=== PATIENT | female | born 1950 | race Caucasian/White ===

== ENCOUNTER → 2020-01-21 14:20 | Outpatient (BNVA) | payer OTHER, MEDICARE, BC, SELFPAY | PROVIDERS: Visit Provider Nurse Practitioner Family | DX: S49.81XA Other specified injuries of right shoulder and upper arm, initial encounter (principal); Y99.0 Civilian activity done for income or pay | CPT/HCPCS: 73030 ==

== ENCOUNTER 2020-01-29 08:04 | Outpatient (CLI) | payer MEDICARE, BC, SELFPAY ==
--- NOTE | 2020-01-29 08:00 | CT_ITS ---
WS: [id number] CT CHEST WITH INTRAVENOUS CONTRAST HISTORY: lung mass TECHNIQUE: Contiguous 5 mm axial imaging performed on the thorax. Coronal and sagittal reformats are submitted. All CT scans at [facility] use at least one of these dose optimization techniq ues: automated exposure control; mA and/or kV adjustment per patient size (includes targeted exams wh ere dose is matched to clinical indication); or iterative reconstruction. CONTRAST: Omnipaque 300; 95 mL IV. DLP: 985.04 mGycm COMPARISON: RIGHT shoulder radiograph 01/21/2020. Lungs and central airway: Numerous bilateral pulmonary masses. The largest mass is cavitary and corre sponds to the finding on the recent radiograph. Largest cavitary mass with thick wall measures 5.4 x 3.1 x 4.5 cm. There is additional atelectasis extending towards the mediastinum. Additional subcentim eter scattered pulmonary nodules. There is a larger nodule RIGHT upper lobe measuring 2.5 x 2.0 x 2.1 cm with slightly spiculated margins. Pleural-based mass in the LEFT lower lobe measures 2.8 x 2.0 x 3.0 cm. Some of these masses contain calcifications. Pleura: Normal. No pleural effusion. Heart and pericardium: Normal size heart. No pericardial effusion. Mediastinum and haleigh: Bilateral mediastinal indeterminate lymph nodes. The largest lymph node on the RIGHT is 9 mm in short axis diameter. Vessels: Mild atherosclerosis aorta with no aneurysm. Pulmonary artery size is very slightly enlarged . Chest wall and lower neck: No soft tissue masses. Upper abdomen: Mild hepatic enlargement. Liver extends over length of 17.8 cm in length with mild hep atic steatosis. No metastatic lesions are identified. Portal vein is normal. No bile duct dilatation. Prior cholecystectomy. No adrenal mass. Osseous structures: Mild osteopenia. No osteoblastic or osteolytic bone disease. CT/CT chest w con* [id number] IMPRESSION: 1. Numerous bilateral, multilobar pulmonary nodules and masses. Largest mass i s cavitary in the RIGHT middle lobe measuring 5.4 x 3.1 x 4.5 cm. Differential includes primary lung cancer with metastatic disease and metastatic disease of unknown primary, infection/fungal etiology. 2. Mild indeterminate hilar adenopathy. 3. Mild pulmonary hypertension. 4. Prior cholecystectomy. 5. Normal adrenal glands.
[2020-01-29 08:49] LABS: Blood Urea Nitrogen 9 mg/dL (8-23); Glomerular Filtration Rate 70.9 mL/min (90-130)
[2020-01-29] MEDS: iohexol 300 mg/mL 100 mL Btl IV (09:04)
== END 2020-01-29 08:05 | disposition home or self-care (01) ==
LOC: RADWPI 08:12
PROVIDERS: PCP Family Medicine; Visit Provider Family Medicine
DX: R91.8 Other nonspecific abnormal finding of lung field (principal); R59.9 Enlarged lymph nodes, unspecified; I27.20 Pulmonary hypertension, unspecified
CPT/HCPCS: 71260; 82565; 84520; Q9967

== ENCOUNTER → 2020-02-06 14:00 | Outpatient (BNVA) | payer MEDICARE, BC, SELFPAY | PROVIDERS: PCP Family Medicine; Referring Provider Family Medicine; Visit Provider Thoracic Surgery (Cardiothoracic Vascular Surgery) | DX: J98.4 Other disorders of lung (principal); R91.1 Solitary pulmonary nodule; R91.8 Other nonspecific abnormal finding of lung field; Z87.891 Personal history of nicotine dependence | CPT/HCPCS: 36415; 80053; 82728; 83516; 85025; 85651; 86003; 86140; 86431; 86698; 87305; 87385; 87449 ==

== ENCOUNTER 2020-02-11 09:59 | Outpatient (CLI) | payer MEDICARE, BC, SELFPAY ==
[2020-02-11 10:32] LABS: Immunoglobulin IGA 98 mg/dL (70-400); Immunoglobulin IGG 1177 mg/dL (700-1600); Immunoglobulin IGM 44 mg/dL (40-230)
[2020-02-12 05:11] LABS: PROTEIN, TOTAL 6.4 g/dL (6.1-8.1)
[2020-02-12 12:01] LABS: ALBUMIN 3.7 g/dL (3.8-4.8); ALPHA 1 GLOBULIN 0.3 g/dL (0.2-0.3); ALPHA 2 GLOBULIN 0.7 g/dL (0.5-0.9); BETA 1 GLOBULIN 0.4 g/dL (0.4-0.6); BETA 2 GLOBULIN 0.3 g/dL (0.2-0.5)
[2020-02-12 12:57] LABS: Creatinine, Random Urine 77 mg/dL (20-275); Protein, Total, Random 15 mg/dL (5-24); Protein/Creatinine Ratio 0.195 (0.021-0.161); Protein/Creatinine Ratio 195 mg/g creat (21-161)
[2020-02-13 15:40] LABS: KAPPA LIGHT CHAIN, FREE, SERUM 29.8 mg/L (3.3-19.4); KAPPA/LAMBDA LIGHT CHAINS FREE 1.69 (0.26-1.65); LAMBDA LIGHT CHAIN, FREE, SERU 17.6 mg/L (5.7-26.3)
[2020-02-14 08:46] LABS: Albumin,Urine Random 0 %; Alpha-1-Globulins Urine Random 0 %; Alpha-2-Globulins Urine Random 0 %; Beta-Globulin,Urine Random 0 %; Gamma Globulin,Urine Random 0 %
== END 2020-02-11 10:00 | disposition home or self-care (01) ==
LOC: LAB 10:00
PROVIDERS: PCP Family Medicine; Visit Provider Internal Medicine Critical Care Medicine
DX: E88.09 Other disorders of plasma-protein metabolism, not elsewhere classified (principal); R91.1 Solitary pulmonary nodule
CPT/HCPCS: 36415; 82784; 83516; 83883; 84155; 84165; 87305

== ENCOUNTER 2020-02-21 07:48 | Day surgery (SDC) | payer MEDICARE, BC, SELFPAY ==
[2020-02-20 17:22] VITALS: BMI 23.6
[2020-02-21] VITALS (8 sets, daily range): BP systolic 115–133; BP diastolic 62–83; PULSE 61–88; RESP 18–20; TEMP 36.2–36.8; O2SAT 92–99
[2020-02-21] MEDS: sodium chloride 0.9% 1,000 ML 30 ML IV (08:26)
[2020-02-21 08:32] LABS: Glucose Point of Care 210 mg/dL (70-110)
--- NOTE | 2020-02-21 08:38 | ANES.PREANE2 ---
Pre-Anesthetic Assessment Pre-Anesthetic Assessment: Height/Weight: Height 1.73 m Weight 70.307 kg Temp Pulse Resp BP Pulse Ox 98.2 F 88 20 H 133/83 99 02/21/20 08:11 02/21/20 08:11 02/21/20 08:11 02/21/20 08:11 02/21/20 08:11 Preop Diagnosis: lung mass Proposed Procedure: Operation Date: 02/21/20 09:30 Proposed Procedures p Veran(Not Applicable) - Tino Bartholomew MD Familial anesthetic complications: PONV - fluid bolus, give decadron after induction, zofran 30 minutes before emergence, propofol gtt at 25 mcg/kg/min for PONV prophylaxis. Avoiding scopolamine for age 69 yrs Was Beta Jacklyn taken within 24 hours: N/A Last intake: Intake Last Liquid Date 02/20/20 Last Liquid Time 22:00 Last Solid Date 02/20/20 Last Solid Time 20:00 Social: Social History: No alcohol and No tobacco Exam: Pre-Anes Outpt Exam: alert, oriented x 3, clear to auscultation bilaterally and regular rate & rhythm Airway: Cervical ROM: WNL MP: 3 Dentition: False Pulmonary: Comments: lung mass CV/HEM: CV/HEM: None reported : : None reported Hepatic: Hepatic: None reported Metabolic: Metabolic: DM Musc/skel: Comments: R arm pulled muscle Neuropsych: Neuropsych: None reported Anesthetic Plan: ASA status: 2 Anesthesia: General Risk of > 500 ml blood loss (7ml/kg in children): No Meds/Allergies Current Medications: Current Medications Generic Name Dose Route Start Last Admin Trade Name Freq PRN Reason Stop Dose Admin Sodium Chloride 1,000 mls @ 30 ml s/hr 02/21/20 08:00 02/21/20 08:26 Sodium Chloride 0.9% IV 02/22/20 07:59 30 mls/hr .Q24H BRIANA Administration PFSH Anesthesia PFSH: Medical History Diabetes Traumatic partial tear of right biceps tendon Surgical History S/P cholecystectomy Family History Father CHF (congestive heart failure) Mother CHF (congestive heart failure) Family/Other Stroke Other Cancer Social History Smoking and tobacco status: former smoker Quit status (tobacco): has quit using tobacco Year quit tobacco: 1991 >0.5 PPD x 6 months Alcohol intake: never Lives independently: Yes Household members: spouse Marital status: Current occupational status: employed Current occupational exposures/hazards: No History of recent travel: No Current gender identity: Female Data Anesthesia Other Labs: Laboratory Results - last 48 hr 02/21/20 08:24 POC Glucose 210 Cardiac Studies: No Data to Display
--- NOTE | 2020-02-21 08:44 | W.PM.OPSUD ---
Surgery/Procedure H&P Update DATE OF PROCEDURE: February 21, 2020 DATE H&P PERFORMED: 02/20/20 H&P UPDATE INFORMATION: I have reviewed H&P completed within last 30 days, I have examined patient prior to procedure and No changes to prior documentation PREOP DIAGNOSIS: lung mass PLANNED PROCEDURE: Operation Date: 02/21/20 09:30 Proposed Procedures jose alfredo Brock(Not Applicable) - Tino Bartholomew MD
--- NOTE | 2020-02-21 09:03 | CT_ITS ---
WS: [id number] Chest CT, noncontrast. Chest CT is performed prior to navigation bronchoscopy to be performed by Dr. Bartholomew.
--- NOTE | 2020-02-21 09:25 | SUR.PREOP ---
PT TAKEN TO CT FOR SCANNING AND PLACEMENT OF V-PAD AT 909, AND BACK TO OPS AT 09
[2020-02-21] MEDS: lidocaine 1% INJ 20 mL INJECTION (10:11)
--- NOTE | 2020-02-21 12:03 | P.OP_ITS ---
Operative Report Date of procedure: February 21, 2020 Pre-op Diagnosis: lung mass Post-op diagnosis: same Brief History: 69-year-old lady with multiple cavitary lung lesions Procedure: Name of the procedure: Bronchoscopy with inspection of the airway, bronchoalveolar lavage, endobronchial ultrasound-guided transbronchial aspiration of lymph nodes, navigational bronchoscopy guided transbronchial b iopsies of the right middle lobe and left lower lobe lung masses, core needle biopsy of the left lower lobe lung mass and fine-needle aspiration of the right middle lobe lung mass, and control of bleeding. Indication: Multiple cavitary pulmonary mass Anesthesia: General anesthesia. Local anesthesia: The mario alberto in the right and left mainstem bronchi were anesthetized with 1% lidocaine, 3 mL. Description of the procedure: The procedure was explained to the patient and the consent was obtained. The patient was brought to the OR. The patient underwent endotracheal intubation for general anesthesia. Following induction of general anesthesia, the bronchoscope was advanced through the ET tube. The lower trachea appeared to be normal. The mario alberto was sharp. The mario alberto, the right and left mainstem bronchi are anesthetized with 1% lidocaine. In a systematic manner bilateral bronchial tree was then examined. The bronchoscope was advanced into the left mainstem bronchus. The left upper lobe, lingula and left lower lobe bronchi were examined up to the third subsegmental level and no abnormalities were identified. There is no endobronchial lesion, active bleeding or mucous plug. The bronchoscope was then introduced into the right mainstem bronchus. The right upper lobe, right middle lobe and right lower lobe bronchi were examined up to the third subsegmental level and no abnormalities were identified. There was evidence of chronic inflammation throughout the airways. Using navigational bronchoscopy transbronchial biopsies were obtained from the right middle lobe lung mass. Fine-needle aspirations were also obtained. Transbronchial biopsies from the left lower lobe lung mass and core needle biopsies were also performed under navigational bronchoscopy guidance. Bronchoalveolar lavage was performed from the medial segment of the right middle lobe. 60 mL of saline was instilled, fluid return was 15 mL. The fluid was bloody. Bronchoalveolar lavage was performed from the left lower lobe. 60 mL of fluid was instilled fluid return was 15 mm. The fluid was bloody. The endobronchial ultrasound was introduced through the ET tube. Right mediastinal lymphadenopathy was noted. Transbronchial needle aspiration was performed from station 7, 10 R and 11 R. Samples: 1. Bronchoalveolar lavage specimen was sent for Gram stain and culture, fungal stain and culture, AFB stain and culture, and cytology. 2. The transbronchial biopsies from right middle lobe lung mass was sent for histopathology. Fine-needle aspiration was sent for cytology. 3. The left lower lobe lung mass transbronchial biopsies are sent for histopathology. The core needle biopsy was also sent for histopathology. 4. The transbronchial needle aspiration of the aforementioned lymph node groups were sent for cytology. Complications: There was no immediate complications. The patient was extubated and brought to the PACU in stable condition. Follow-up: Please follow-up with me in 2 weeks time in the office.
[2020-02-21] MEDS: tizanidine 4 mg Tablet 2 MG PO (12:45)
--- NOTE | 2020-02-21 12:50 | XR_ITS ---
WS: [id number] PORTABLE CHEST HISTORY: post bronchoscopy COMPARISON: 02/21/2020 and 01/29/2020 Focal area of consolidation in the RIGHT lower lung field measures 6.2 x 4.2 cm. Corresponds to the a pranav of recent lung biopsy by navigational bronchoscopy. There may be some associated hemorrhage. No p leural effusion or pneumothorax. Cardiac size: Normal. Mediastinum/Aorta: Mild atherosclerosis aorta. Humeral head deformity on the LEFT from prior healed fracture. XR/XR chest 1V portable [id number] IMPRESSION: Dense consolidation at the RIGHT lung base corresponds to the mass that was bio psied by navigational bronchoscopy. No complication. There may be a small amoun t of adjacent hemorrhage. No pneumothorax.
== END 2020-02-21 13:10 | disposition home or self-care (01) ==
PROVIDERS: PCP Family Medicine; Visit Provider Internal Medicine Critical Care Medicine
PROC: 0BJ08ZZ Inspection of Tracheobronchial Tree, Via Natural or Artificial Opening Endoscopic (ICD-10-PCS; CPT 31622; principal; 2020-02-21 09:30)
DX: J98.4 Other disorders of lung (principal); E11.9 Type 2 diabetes mellitus without complications; Z82.49 Family history of ischemic heart disease and other diseases of the circulatory system; Z87.891 Personal history of nicotine dependence
CPT/HCPCS: 12345; 31622; 31627; 36416; 71045; 71250; 82962; 87015; 87070; 87102; 87116; 87205; 87206; 87801; 88112; 88173; 88305; 88307; 88309; J0330; J1100; J2001; J2405; J2704; J2710; J3010; J3490; J7030

== ENCOUNTER 2020-02-22 12:51 | Emergency (ER) | payer MEDICARE, BC, SELFPAY ==
[2020-02-22 13:06] VITALS: BP 130/74; PULSE 77; RESP 14; TEMP 36.7; O2SAT 97; BMI 23.6
--- NOTE | 2020-02-22 13:22 | XRR_ITS ---
PROCEDURE INFORMATION: Exam: XR Chest, 1 View Exam date and time: 02/22/2020 1:22 PM Age: 69 years old Clinical indication: Cough and shortness of breath; Additional info: Cough, SOB after bronchoscopy TECHNIQUE: Imaging protocol: XR of the chest Views: 1 view. COMPARISON: NV XR chest 1V portable [id number] 02/21/2020 12:49 PM FINDINGS: Lungs: Persistent 5.8 x 5.3 cm ovoid mass with central cavitation overlying the right lung base and left basilar airspace disease. Mild interstitial prominence. Pleural space: No significant pleural effusion or pneumothorax. Heart/Mediastinum: Epicardial fat accentuates the cardiac silhouette. Diaphragm: Asymmetric elevation of the right hemidiaphragm. Bones/joints: Osteopenia and degenerative change. Old left humeral fracture. When correlating with the previous study, no significant interval changes are present. XR/XR chest 1V portable [id number] IMPRESSION: Stable appearance of the chest, not significantly changed from 02/21/2020 .
--- NOTE | 2020-02-22 13:44 | W.ED.SOB ---
HPI - SOB/Dyspnea General: Chief Complaint: Shortness of Breath/Dyspnea Stated Complaint: sob/cough Time Seen by Provider: 02/22/20 13:20 History of Present Illness: HPI Narrative: Patient is a 69 year old female presenting with shortness of breath, wheezing and cough related to a bronchoscopy that was done yesterday by Dr. Bartholomew. She is being worked up for two lung masses in her lungs. She had not had any symptoms prior to the bronchoscopy and she the masses were noted incidentally on an xray that she had for a right shoulder injury. She is also complaining of a very sore throat today. MD elicited complaint: shortness of breath Pertinent past history: diabetes Onset (ago): day(s) (1) Timing: constant Severity: moderate Exacerbating factors: lying flat and coughing Associated symptoms: Reports chest pain (midsternal and related to breathing); Deny nausea or vomiting Treatment prior to arrival: none Review of Systems General: Reports: 10 or more systems reviewed and unremarkable except in HPI and below Card: Reports: chest pain (midsternal and related to breathing) Resp: Reports: dyspnea, non-productive cough, wheezing and pain on inspiration GI: Denies: nausea or vomiting Neuro: Denies: headache(s), numbness in extremities or weakness in extremities Psych: Reports: anxiety Poli/Lymph: Denies: easy bruising or easy bleeding COUNTS INCLUDE 234 BEDS AT THE [facility] ED PFSH: Medical History Diabetes Traumatic partial tear of right biceps tendon Surgical History S/P cholecystectomy Family History Father CHF (congestive heart failure) Mother CHF (congestive heart failure) Family/Other Stroke Other Cancer Social History Smoking and tobacco status: former smoker Quit status (tobacco): has quit using tobacco Year quit tobacco: 1991 >0.5 PPD x 6 months Alcohol intake: never Lives independently: Yes Household members: spouse Marital status: Current occupational status: employed Current occupational exposures/hazards: No History of recent travel: No Current gender identity: Female Physical Exam Const: COMMON NORMALS: no acute distress, average body habitus, patient oriented x3, no limitations, healthy appearing, alert and well nourished HENMT: COMMON NORMALS: normocephalic HEAD & SCALP: normal to inspection and normocephalic Eye: GENERAL EYE: appearance normal, both eyes and all related structures Neck/C-Spine: COMMON NORMALS: full ROM and supple GENERAL: Yes normal visual inspection, Yes trachea midline, No anterior neck swelling and No tracheal deviation Chest: COMMONS NORMALS: normal inspection of the chest Resp: COMMON NORMALS: normal respiratory effort, No retractions and No use of accessory muscles AUSCULTATION: rhonchi right lower and wheezes right upper Cardio: COMMON NORMALS: regular rate, regular rhythm, S1 normal heart sound present, S2 normal heart sound present and No murmurs present (Cardio) RATE: regular rate RHYTHM: regular rhythm HEART SOUNDS: S1 normal heart sound present and S2 normal heart sound present Back/Pelvis: COMMON NORMALS: thoracic and lumbar spine normal to inspection Neuro: COMMON NORMALS: patient oriented x3 SENSORIUM/ORIENTATION: Yes alert Psych: COMMON NORMALS: mental status grossly normal, cooperative, normal affect and activity/motor behavior normal Skin: COMMON NORMALS: no rashes or lesions noted GENERAL SKIN EXAM: no rashes or lesions noted Course ED course: Patient with a biopsy yesterday for a cavitary lung mass - with wheezing, mild rhochi and chest discomfort. CXR normal other than the known mass with no pneumothorax or infiltrate. Sats, vital good. Suspect this is normal discomfort after bronch. Will try to reach Dr. Bartholomew for further advice. Spoke with Dr. Bartholomew - agrees with outpatient follow up Vital Signs: Vital signs: Vital Signs Temperature 98.0 F 02/22/20 13:06 Pulse Rate 69 02/22/20 15:18 Respiratory Rate 18 02/22/20 15:18 Blood Pressure 123/70 02/22/20 15:18 Pulse Oximetry 97 02/22/20 15:18 Discharge Plan Discharge Patient Disposition: Home, Self-Care Clinical Impression: Acute dyspnea Condition: Stable Prescriptions: No Action metformin 500 mg tablet 1,000 mg PO BID RF: 0 tizanidine [Zanaflex] 2 mg capsule 2 mg PO TID PRN (Reason: muscle spasticity) Qty: 20 RF: 0 acetaminophen [Tylenol] 325 mg tablet 500 mg PO QID PRN (Reason: Pain) RF: 0 acetaminophen-codeine 300-15 mg tablet 1 tab PO Q6H PRN (Reason: Pain) RF: 0 hydrocodone-acetaminophen 5-325 mg tablet 1 tab PO Q6H PRN (Reason: Pain) RF: 0 magnesium 1 tab PO EVERY OTHER DAY RF: 0 Discharge Orders: Discharge Order (Routine); Ordered 02/22/20 Ordered By: Sandy Khanna Referrals: Tino Bartholomew MD [Physician] - (Dr. Bartholomew will call you Monday to see how you are doing) Honey Diaz MD [Primary Care Provider] - Activity Restrictions/Additional Instructions: Return to the ED if worsening symptoms including pain, shortness of breath or fever. Discharge Date/Time: 02/22/20 15:18 Coding Level of Care Code ED Body Component Engineer for Stephaniag Fwd Exam Comprehensive
[2020-02-22 15:18] VITALS: BP 123/70; PULSE 69; RESP 18; O2SAT 97
--- NOTE | 2020-02-24 12:36 | DCPLANNER ---
land leases and rentals manager had message to schedule a follow up appointment for patient with [facility]. land leases and rentals manager called [facility], spoke with Clau, a follow up appointment was scheduled for patient Wednesday March 04, 2020 at 10:[address] Bartholomew. Clinic will call patient with appointment information.
--- NOTE | 2020-04-08 12:28 | DCPLANNER ---
Patient did attend appointment scheduled for 03.04.20 with [facility].
== END 2020-02-22 15:18 | disposition home or self-care (01) ==
PROVIDERS: Emergency Provider Emergency Medicine; PCP Family Medicine
DX: R06.00 Dyspnea, unspecified (principal); Z79.84 Long term (current) use of oral hypoglycemic drugs; E11.9 Type 2 diabetes mellitus without complications; Z87.891 Personal history of nicotine dependence
CPT/HCPCS: 12345; 71045; 99281; 99282

== ENCOUNTER 2020-03-04 08:12 | Outpatient (CLI) | payer MEDICARE, BC, SELFPAY ==
--- NOTE | 2020-03-04 11:19 | PFTS_ITS ---
Date of Study:03/04/20 Date of Dictation: MECHANICS: Forced vital capacity (FVC) is . Forced expiratory volume in one second (FEV1) is . FEV1/FVC is . FLOW VOLUME LOOP: . LUNG VOLUMES: Total lung capacity (TLC) is . Residual volume (RV) is . DIFFUSING CAPACITY FOR CARBON MONOXIDE: . INTERPRETATION: The pulmonary function tests are . mechanics and lung volumes. Gas exchange (DLCO) is . MTDD
== END 2020-03-04 08:13 | disposition home or self-care (01) ==
LOC: RT 08:18
PROVIDERS: PCP Family Medicine; Visit Provider Internal Medicine Critical Care Medicine
DX: J98.4 Other disorders of lung (principal)
CPT/HCPCS: 71046; 82164; 86480; 94060; 94726; 94729; J7611

== ENCOUNTER 2020-03-04 10:29 | Outpatient (CLI) | payer MEDICARE, BC, SELFPAY ==
--- NOTE | 2020-03-04 10:36 | XR_ITS ---
WS: [id number] CHEST 2 VIEWS HISTORY: Cavitary lung disease COMPARISON: 02/22/[address] 02/21/2020. Lungs: Large cavitary lesion centered over the mid RIGHT lung measures 6.0 x 5.[address] this i s noted to be in the RIGHT middle lobe. There were additional bilateral upper lobe opacifications whi ch are again identified without improvement. Solid nodule with increased opacification at the LEFT co stophrenic angle with a maximum diameter 3.5 cm. Cardiac size: Normal. Mediastinum/Aorta: Normal mediastinum. Bones: Deformity of the LEFT humeral neck from prior fracture. XR/XR chest 2V* [id number] IMPRESSION: 1. Large cavitary lesion centered over the RIGHT mid lung measures 6.0 x 5.3 c m. No interval change. 2. Additional bilateral upper lobe and LEFT costophrenic angle opacifications are again identified without improvement.
[2020-03-05 12:32] LABS: Angiotensin Converting Enzyme 31 U/L (9-67)
[2020-03-06 15:11] LABS: Quantiferon Mitogen 8.43 IU/mL; Quantiferon Nil 0.01 IU/mL; Quantiferon TB Gold NEGATIVE (NEGATIVE)
== END 2020-03-04 10:30 | disposition home or self-care (01) ==
LOC: RAD 10:34
PROVIDERS: PCP Family Medicine; Visit Provider Internal Medicine Critical Care Medicine
DX: J98.4 Other disorders of lung (principal)
CPT/HCPCS: 71046; 82164; 86480

== ENCOUNTER 2020-04-09 15:13 | Outpatient (CLI) | payer MEDICARE, BC, SELFPAY ==
--- NOTE | 2020-04-09 15:23 | XRR_ITS ---
PROCEDURE INFORMATION: Exam: XR Chest, 2 Views Exam date and time: 04/09/2020 3:33 PM Age: 69 years old Clinical indication: Patient HX: C/O shortness of breath since 12/26; Additional info: Cavitary lung disease TECHNIQUE: Imaging protocol: XR of the chest Views: 2 views. COMPARISON: CR XR chest 2V* [id number] 03/04/2020 10:49 AM FINDINGS: Lungs: Slightly decreased 3.7 cm rounded pneumonia or mass in the left lateral lung base which previously measured 4.0 cm. Pleural space: Unremarkable. No pleural effusion. No pneumothorax. Heart/Mediastinum: Unremarkable. No cardiomegaly. Bones/joints: Low density bone consistent with osteopenia/osteoporosis. Other findings: Decreased size of 4.6 x 3.4 x 3.5 cm cavitary right parahilar lesion which previously measured 5.1 x 4.1 x 4.1 cm. Possibly treated infectious or neoplastic process. XR/XR chest 2V* [id number] IMPRESSION: 1. Decreased size of 4.6 x 3.4 x 3.5 cm cavitary right parahilar lesion which previously measured 5.1 x 4.1 x 4.1 cm. Possibly treated infectious or neoplastic process. 2. Slightly decreased 3.7 cm rounded pneumonia or mass in the left lateral lung base which previously measured 4.0 cm.
== END 2020-04-09 15:14 | disposition home or self-care (01) ==
LOC: RAD 15:18
PROVIDERS: PCP Family Medicine; Visit Provider Internal Medicine Critical Care Medicine
DX: J98.4 Other disorders of lung (principal)
CPT/HCPCS: 71046

== ENCOUNTER → 2020-05-01 12:48 | Outpatient (BNVA) | payer MEDICARE, BC, SELFPAY | PROVIDERS: PCP Nurse Practitioner Family; Visit Provider Nurse Practitioner Family | DX: E11.9 Type 2 diabetes mellitus without complications (principal) | CPT/HCPCS: 80053; 80061; 82044; 83036; 85025 ==

== ENCOUNTER 2020-05-28 06:50 | Emergency (ER) | payer MEDICARE, BC, SELFPAY ==
[2020-05-28 07:02] VITALS: BP 141/81; PULSE 80; RESP 18; TEMP 36.9; O2SAT 96; BMI 22.8
--- NOTE | 2020-05-28 07:02 | ED_ITS ---
HPI - Fall General: Chief Complaint: Fall Stated Complaint: FALL Time Seen by Provider: 05/28/20 06:53 History of Present Illness: HPI Narrative: This patient is a 69 year old female presenting to the ED by ambulance for left hip pain after a fall at work. She reports a trip and fall and denies LOC. She has a hematoma on the left parietal scalp - and a hematoma on her left elbow. She denies chest pain or SOB. She had some nausea after the fall but none now. She was given pain meds by EMS and declines more pain meds now. She has not eaten since 8 pm last night. She is diabetic, and is currently on prednisone for spots in her lungs. She took her last dose yesterday and had been on it for about a month. Sees Dr. Bartholomew for that issue. complaint: fall Onset (ago): minute(s) (30) Fall from: standing Fall witnessed: yes, by bystander Place fall occurred: work Loss of consciousness: None Prolonged down time: no Symptoms prior to fall: none Context: tripped/slipped Location of injury: head Location of injury - extremities: Left: elbow and thigh Associated symptoms-after fall: Reports difficulty walking (can't move left leg, was not able to get up); Denies abdominal pain, chest pain or neck pain Review of Systems General: Reports: 10 or more systems reviewed and unremarkable except in HPI and below Const: Denies: fever(s), chills, fatigue or malaise Eyes: Denies: change in vision ENMT: Denies: odynophagia Card: Denies: chest pain or swelling of feet/ankles Resp: Denies: dyspnea, productive cough or non-productive cough GI: Denies: abdominal pain, nausea or vomiting : Denies: flank pain or difficulty voiding Musc: Denies: neck pain or back pain Skin/Breast: Denies: rash Neuro: Reports: difficulty walking (can't move left leg, was not able to get up) Poli/Lymph: Denies: easy bruising or easy bleeding PFS ED PFSH: Medical History Diabetes Traumatic partial tear of right biceps tendon Surgical History S/P cholecystectomy Family History Father CHF (congestive heart failure) Mother CHF (congestive heart failure) Family/Other Stroke Other Cancer Social History Smoking and tobacco status: former smoker Quit status (tobacco): has quit using tobacco Year quit tobacco: 1992 >0.5 PPD x 6 months Alcohol intake: never Lives independently: Yes Household members: spouse Marital status: Current occupational status: employed Current occupation: [employer] Current occupational exposures/hazards: No History of recent travel: No Current gender identity: Female Physical Exam Const: COMMON NORMALS: no acute distress, patient oriented x3, no limitations and alert GENERAL APPEARANCE: cooperative and comfortable HENMT: HEAD & SCALP: hematoma left parietal FACE & SINUS: normal facial exam Eye: GENERAL EYE: appearance normal, both eyes and all related structures Neck/C-Spine: COMMON NORMALS: supple, no meningeal signs and no JVD CERVICAL SPINE: Yes cervical ROM normal and No Cervical spine tenderness Chest: COMMONS NORMALS: normal inspection of the chest Resp: COMMON NORMALS: normal respiratory effort, No use of accessory muscles and clear to auscultation bilaterally AUSCULTATION: clear to auscultation bilaterally Cardio: COMMON NORMALS: no JVD, regular rate, regular rhythm and No murmurs present (Cardio) RATE: regular rate RHYTHM: regular rhythm GI: COMMON NORMALS: Normal to inspection, nondistended, normoactive bowel sounds present, Soft to palpation and non-tender INSPECTION: Yes normal to inspection AUSCULTATION: Yes normoactive bowel sounds PALPATION: Yes Soft to palpation Back/Pelvis: COMMON NORMALS: thoracic and lumbar spine normal to inspection Extremity: GENERAL: Yes normal exam except as noted LEFT UPPER EXTREMITY: Yes elbow joint (hematoma, no bony tenderness or deformity, FROM) LEFT LOWER EXTREMITY: Yes hip joint (tender to palp - holding in flexion) Neuro: COMMON NORMALS: patient oriented x3, moves all extremities, no focal motor deficits and no sensory deficits noted SENSORIUM/ORIENTATION: Yes alert MENINGEAL SIGNS: Yes no meningeal signs Psych: COMMON NORMALS: mental status grossly normal, cooperative and normal affect Skin: COMMON NORMALS: no rashes or lesions noted and turgor normal GENERAL SKIN EXAM: no rashes or lesions noted and turgor normal Course ED course: CT head neg, CT hip with inferior and superior pubic rami fractures. She was able to get up and use a wheeled walker with PT assistance. She feels comfident to go home with a walker and ortho follow up. She has taken oxycodone in the past without problems. She is also on prednisone for pulmonary sacroidosis. She says that she is out of the 20 mg daily prednisone that she was taking. She was suppose to start a taper now - but she says Dr. Bartholomew hasn't given her a new script. His note is confusing as it says that she is to taper from 20 mg to 50 mg... 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 I will give her a new script for this. I also asked her to discuss the prednisone with Dr. Bartholomew and with Dr. Posada as this could be an issue for bone healing. She also has very poor bone density noted on the xrays. Reevaluation(s): Reevaluation #1: Patient did not want to have a walker brought to the ED - she thinks she has one that she can borrow and her is coming to get her. She thinks she can manage until she is able to get a walker. I have paged Dr. Bartholomew to aske about the prednisone, but he is not child nutrition director and I was not able to speak to him. I also have a page out to Dr. Posada for follow up but he has not called back yet. Reevaluation #2: Patient's EKG is somewhat abnormal and there are no priors for comparison. She is completely asymptomatic in terms of anything concerning for cardiac. She has no chest pain, shortness of breath, lightheadedness, palpitations, fatigue. Potentially these changes could be related to her chronic lung disease. Consultations: Consultation #1: Spoke with Dr. Posada. He agrees with management. He is aware of her treatment with prednisone. Time: 09:38 Vital Signs: Vital signs: Vital Signs Temperature 98.4 F 05/28/20 07:02 Pulse Rate 78 05/28/20 09:16 Respiratory Rate 18 05/28/20 09:16 Blood Pressure 139/80 05/28/20 09:16 Pulse Oximetry 97 05/28/20 09:16 MDM - Fall MDM Narrative: Medical decision making narrative: Left hip or pelvic fracture, closed head injury Lab Data: Labs: Lab Results 05/28/20 05/28/20 Range/Units 07:12 07:12 WBC 8.3 (4.0-10.0) 10^3/ uL RBC 4.48 (4.1-5.3) 10^6/u L Hgb 13.7 (11.5-15.3) g/dL Hct 42.4 (37.0-47.0) % MCV 94.6 (81-99) fL MCH 30.6 (28.0-34.0) pg MCHC 32.3 (30.0-36.0) g/dL RDW 13.5 (12.1-15.1) % Plt Count 174 (130-400) 10^3/c mm MPV 11.4 H (7.4-10.4) fL Neut % (Auto) 87.7 % Lymph % (Auto) 6.7 % [place] % (Auto) 3.7 % Eos % (Auto) 0.1 % Baso % (Auto) 0.2 % Neut # (Auto) 7.29 (1.8-7.7) 10^3/u L Lymph # (Auto) 0.6 L (0.8-4.8) 10^3/u L [place] # (Auto) 0.3 (0.2-0.9) 10^3/u L Eos # (Auto) 0.0 (0.0-0.8) 10^3/u L Baso # (Auto) 0.0 (0.0-0.1) 10^3/u L Nucleated RBC % (a uto) 0 % Nucleated RBCs # 0.0 /100WBC Sodium 136 (136-145) mmol/L Potassium 4.8 (3.5-5.1) mmol/L Chloride 102 (98-107) mmol/L Carbon Dioxide 27 (22-29) mmol/L Anion Gap 11.8 (5-19) BUN 14 (8-23) mg/dL Creatinine 0.6 (0.5-0.9) mg/dL GFR Calculation 98.8 (90-130) mL/min Glucose 270 H (65-115) mg/dL Calculated Osmolal ity 288 (285-295) mOsm/k g Calcium 9.3 (8.5-10.5) mg/dL Total Bilirubin 0.7 (0.15-1.2) mg/dL AST 18 (0-32) U/L ALT 23 (0-33) U/L Alkaline Phosphata se 71 (35-105) IU/L Total Protein 6.7 (6.6-8.7) g/dL Albumin 4.2 (3.5-5.2) g/dL Globulin 2.5 (1.3-4.6) g/dL EKG Data^: EKG 1: EKG interpretation date: 05/28/20 EKG interpretation time: 07:36 Prior EKG tracings: not available for review Interpretation: Sinus rhythm with a rate of 64. There is some sinus arrhythmia. Intervals are normal. [place] is normal. There is some ST deviation and flipped T waves in the precordial leads. No priors are available for comparison. Discharge Plan Discharge Patient Disposition: Home Clinical Impression: Sarcoidosis of lung Closed pelvic fracture Qualifiers: Encounter type: initial encounter Pelvic bone location: pubis Sublocation of pubis: unspecified portion of pubis Laterality: left Qualified Code(s): S32.502A - Unspecified fracture of left pubis, initial encounter for closed fracture Osteoporosis Qualifiers: Osteoporosis type: other Presence of current pathological fracture: unspecified Qualified Code(s): M81.8 - Other osteoporosis without current pathological fracture Condition: Stable Prescriptions: New prednisone 5 mg tablet 15 mg PO DAILY Qty: 30 RF: 0 oxycodone-acetaminophen 5-325 mg tablet 1 tab PO Q6H PRN (Reason: pain) Qty: 20 RF: 0 Discontinued prednisone 20 mg tablet 20 mg PO DAILY 60 Days Qty: 60 RF: 0 No Action acetaminophen [Tylenol] 325 mg tablet 500 mg PO QID PRN (Reason: Pain) RF: 0 Januvia 100 mg tablet 100 mg PO DAILY Qty: 90 RF: 0 metformin 500 mg tablet 1,000 mg PO BID 90 Days Qty: 360 RF: 0 Other Ambulatory Orders: DME: Walker (Order) Location: None Selected Ordered By: Sandy Khanna Referrals: Genesis Bermudez FNP [Primary Care Provider] - Girish Posada MD [Physician] - 4-7 days Discharge Diet: Advance as tolerated Discharge Activity: Use walker/crutches as instructed and Return to work/school after cleared by PCP/Specialist Patient Instructions: Pelvic Fracture (ED) Activity Restrictions/Additional Instructions: Use the walker with as little weight bearing on the left leg as possible. Use the pain medicine as needed. You may also take 500mg of tylenol every 4 hours without going over the recommended amount of tylenol. Return to the ED if new or worse symptoms. Call Dr. Bartholomew to ask about the dose of prednisone and make sure that he knows you have a pelvic fracture. When you see Dr. Posada, make sure that he knows you are taking prednisone. No return to work until released by Dr. Posada. Stand Alone Forms: Work/School Release Discharge Date/Time: 05/28/20 09:18 Coding Level of Care Code ED Extrusion Bender for Stephaniag Fwd Exam Comprehensive
--- NOTE | 2020-05-28 07:03 | CT_ITS ---
WS: [id number] CT HEAD NONCONTRAST HISTORY: fall, hematoma TECHNIQUE: Contiguous axial imaging performed through the brain in 2.5 mm imaging. Bone and soft tiss ue windows. Sagittal and coronal reformats reviewed. All CT scans at [facility] use at ast one of these dose optimization techniques: automated exposure control; mA and/or kV adjustment pe r patient size (includes targeted exams where dose is matched to clinical indication); or iterative r econstruction. DLP: 845.56 mGy.cm COMPARISON: None available. No acute intracranial hemorrhage, midline shift or mass effect. No atrophy or prior infarcts or herniation. Mild chronic microvascular ischemic disease. No prior in farcts. Ventricles: Normal size with no hydrocephalus. Paranasal sinuses: As visualized are clear. Mastoid air cells: Well pneumatized. Calvarium and scalp: No skull fracture. Small amount of soft tissue induration over the LEFT parietal bone. CT/CT head wo con* [id number] IMPRESSION: 1. No acute intracranial hemorrhage or edema. 2. Small soft tissue hematoma centered over the LEFT parietal region.
--- NOTE | 2020-05-28 07:03 | XR_ITS ---
WS: [id number] EXAM: AP CHEST: PORTABLE UPRIGHT DATE OF EXAM: 05/28/2020, 0721 hours COMPARISON: Chest x-ray from 04/09/2020 HISTORY: Patient is 69 years old with fall. Suspected hip fracture. Follow-up pulmonary infiltrate/nodules.. FINDINGS: The cardiac silhouette is normal in size. The mediastinal contours are normal. The pulmonary vas cularity is normal. Lobulated mass lesions are again demonstrated within the lower lung zones bilate rally. More prominent on the right than the left. Most likely represents cavitating neoplasm on the r ight. Actually appears smaller than on a 02/21/2020 exam. No new area of consolidation. There is no e ffusion or pneumothorax. Bone density is decreased. Scattered degenerative changes in the spine. Amy gical clips in the right upper quadrant correlate with cholecystectomy changes. XR/XR chest 1V portable [id number] IMPRESSION: Findings of mass lesions within both lungs again seen. The largest mass lesion right lung base is smaller. No new area of infiltrate. No effusion or pneumotho rax.
--- NOTE | 2020-05-28 07:03 | ECG_ITS ---
[facility] [place] [facility] Date: 2020-05-28 Pat Name: Cait Chavira Department: Room: Gender: Female Work Station Support Specialist: : 1950 Requested By: Sandy Walker Order Number: [id number] Severino MD: Guillermo Bowen M.D. Measurements Intervals [place] Rate: 64 P: 60 KS: 136 QRS: 26 QRSD: 90 T: 89 QT: 375 QTc: 387 Interpretive Statements SINUS RHYTHM WITH SINUS ARRHYTHMIA ST DEVIATION AND MODERATE T-WAVE ABNORMALITY, CONSIDER ANTEROLATERAL ISCHEMIA [-0.1+ mV T WAVE IN V3-V6] No previous ECG available for comparison Electronically Signed On 05-28-2020 22:43:05 CDT by Guillermo Bowen M.D. [id number]
--- NOTE | 2020-05-28 07:03 | XR_ITS ---
WS: [id number] EXAM: LEFT HIP: 2 VIEWS DATE OF EXAMINATION: 05/28/2020, 0717 hours COMPARISON: None. HISTORY: Patient is 69 years old with hip pain status post fall. FINDINGS: Bone density is profoundly decreased. There are slight changes of arthritis within the left hip joint with marginal spurring. A definite hip fracture is not seen. Not convinced of a definite pubic rami fracture either. Secondary to the amount of decreased bone density if there is high clinical suspicio n for fracture follow-up CT would be recommended. XR/XR hip LT 2-3V wo/w pel* [id number] IMPRESSION: Profound decreased bone density. Arthritis left hip joint. No definite fracture seen as presented. See body of the report.
[2020-05-28 07:17] LABS: Basophils % 0.2 %; Eosinophils % 0.1 %; Hematocrit 42.4 % (37.0-47.0); Hemoglobin 13.7 g/dL (11.5-15.3); Lymphocytes # 0.6 10^3/uL (0.8-4.8); Lymphocytes % 6.7 %; Mean Corpuscular HGB Conc 32.3 g/dL (30.0-36.0); Mean Corpuscular Hemoglobin 30.6 pg (28.0-34.0); Mean Corpuscular Volume 94.6 fL (81-99); Mean Platelet Volume 11.4 fL (7.4-10.4); Monocytes # 0.3 10^3/uL (0.2-0.9); Monocytes % 3.7 %; Neutrophils # 7.29 10^3/uL (1.8-7.7); Neutrophils % 87.7 %; Nucleated Red Blood Cells % 0 %; Platelet Count 174 10^3/cmm (130-400); Red Blood Count 4.48 10^6/uL (4.1-5.3); Red Cell Distribution Width 13.5 % (12.1-15.1); White Blood Count 8.3 10^3/uL (4.0-10.0)
[2020-05-28 07:39] LABS: Alanine Aminotransferase 23 U/L (0-33); Albumin Level 4.2 g/dL (3.5-5.2); Alkaline Phosphatase 71 IU/L (35-105); Anion Gap 11.8 (5-19); Aspartate Amino Transferase 18 U/L (0-32); Blood Urea Nitrogen 14 mg/dL (8-23); Calcium 9.3 mg/dL (8.5-10.5); Carbon Dioxide 27 mmol/L (22-29); Chloride 102 mmol/L (98-107); Globulin 2.5 g/dL (1.3-4.6); Glomerular Filtration Rate 98.8 mL/min (90-130); Glucose 270 mg/dL (65-115); Osmolality Calculated 288 mOsm/kg (285-295); Potassium 4.8 mmol/L (3.5-5.1); Sodium 136 mmol/L (136-145); Total Bilirubin 0.7 mg/dL (0.15-1.2); Total Protein 6.7 g/dL (6.6-8.7)
--- NOTE | 2020-05-28 07:40 | CT_ITS ---
WS: [id number] CT LEFT HIP, NONCONTRAST. HISTORY: fall, suspect left hip fracture Technique: All CT scans at [facility] use at least one of these dose optimization techniq ues: automated exposure control; mA and/or kV adjustment per patient size (includes targeted exams wh ere dose is matched to clinical indication); or iterative reconstruction. DLP: 606.2 mGy.cm COMPARISON: Radiographs 05/28/2020 No acute RIGHT hip fracture. Mild narrowing of the hip joint. No displacement. Nondisplaced fractures are present through the LEFT superior and inferior pubic rami. Superior pubic rami slightly more comminuted. No extension of the fractures into the acetabulum. There is mild soft tissue edema and induration lateral to the LEFT hip. CT/CT hip LT wo con* [id number] IMPRESSION: 1. No LEFT hip fracture or displacement. 2. Nondisplaced LEFT superior and inferior pubic rami fractures.
[2020-05-28 08:16] VITALS: RESP 18
[2020-05-28] MEDS: morphine 4 mg/mL SDV 1 mL IVP (08:16)
--- NOTE | 2020-05-28 09:00 | PC.NURSE ---
ortho in room to instruct patient on the use of walker, tolerated well
[2020-05-28 09:05] VITALS: BP 139/80; PULSE 78; RESP 18; O2SAT 97
[2020-05-28 09:16] VITALS: BP 139/80; PULSE 78; RESP 18; O2SAT 97
--- NOTE | 2020-05-29 10:01 | DCPLANNER ---
manager requirements had message to schedule a follow up appointment for patient with ortho. manager requirements called the ortho clinic, spoke with Clementina, gave clinic patients information. manager requirements was told that patients information would be printed and reviewed. Clinic will call patient with appointment information.
--- NOTE | 2020-06-09 15:21 | DCPLANNER ---
Patient has a follow up appointment for scheduled for Monday, June 10, 2020 at 11:[address] Posada. Clinic will call patient with appointment information.
--- NOTE | 2020-07-07 08:01 | DCPLANNER ---
Patient had an appointment scheduled for 06.10.20 with ortho - patient did attend the appointment.
== END 2020-05-28 09:18 | disposition home or self-care (01) ==
PROVIDERS: Emergency Provider Emergency Medicine; PCP Nurse Practitioner Family
DX: M81.8 Other osteoporosis without current pathological fracture (principal); S32.502A Unspecified fracture of left pubis, initial encounter for closed fracture; D86.0 Sarcoidosis of lung; W19.XXXA Unspecified fall, initial encounter; E11.9 Type 2 diabetes mellitus without complications; Z87.891 Personal history of nicotine dependence
CPT/HCPCS: 12345; 36415; 70450; 71045; 73502; 73700; 80053; 85025; 93005; 96374; 97161; 99282; 99284; J2270

== ENCOUNTER → 2020-06-10 11:03 | Outpatient (BNVA) | payer MEDICARE, BC, SELFPAY | PROVIDERS: PCP Nurse Practitioner Family; Referring Provider Emergency Medicine; Visit Provider Orthopaedic Surgery | DX: S32.9XXA Fracture of unspecified parts of lumbosacral spine and pelvis, initial encounter for closed fracture (principal); W19.XXXA Unspecified fall, initial encounter | CPT/HCPCS: 72170 ==

== ENCOUNTER → 2020-06-30 11:09 | Outpatient (BNVA) | payer MEDICARE, BC, SELFPAY | PROVIDERS: PCP Nurse Practitioner Family; Visit Provider Orthopaedic Surgery | DX: S32.9XXA Fracture of unspecified parts of lumbosacral spine and pelvis, initial encounter for closed fracture (principal) | CPT/HCPCS: 72170; 73502 ==

== ENCOUNTER 2020-06-30 13:52 | Outpatient (CLI) | payer MEDICARE, BC, SELFPAY ==
--- NOTE | 2020-06-30 13:59 | XRR_ITS ---
PROCEDURE INFORMATION: Exam: XR Chest, 2 Views Exam date and time: 06/30/2020 2:09 PM Age: 69 years old Clinical indication: Condition or disease; Lung condition and disease; Other: Cavitary lung lesion; Other: Difficulty breathing TECHNIQUE: Imaging protocol: XR of the chest Views: 2 views. COMPARISON: CR XR chest 1V portable [id number] 05/28/2020 7:19 AM FINDINGS: Lungs: Bilateral pulmonary mass lesions are redemonstrated, similar to the prior exam when allowing for better degree of inspiratory effort. The lesion on the right is cavitary. No significant change in these in the interval. Pleural space: No pleural effusion or pneumothorax. Heart/Mediastinum: The cardiac silhouette is not enlarged. The mediastinal contours are normal. Bones/joints: Old, healed left humeral neck fracture. XR/XR chest 2V* [id number] IMPRESSION: No significant change in the bilateral pulmonary mass lesions, cavitary on the right.
== END 2020-06-30 13:53 | disposition home or self-care (01) ==
LOC: RAD 13:57
PROVIDERS: PCP Nurse Practitioner Family; Visit Provider Internal Medicine Critical Care Medicine
DX: D86.0 Sarcoidosis of lung (principal); J98.4 Other disorders of lung
CPT/HCPCS: 71046

== ENCOUNTER 2020-07-22 10:55 | Outpatient (CLI) | payer MEDICARE, BC, SELFPAY ==
--- NOTE | 2020-07-22 11:21 | PFTS_ITS ---
Date of Study:07/22/20 Date of Dictation: MECHANICS: Forced vital capacity (FVC) is normal. Forced expiratory volume in one second (FEV1) is normal. FEV1/FVC is normal. FLOW VOLUME LOOP: Normal. LUNG VOLUMES: Not measured DIFFUSING CAPACITY FOR CARBON MONOXIDE: Mild reduced INTERPRETATION: The spirometry is normal. The gas exchange is mildly reduced. MTDD
== END 2020-07-22 10:56 | disposition home or self-care (01) ==
LOC: RT 10:58
PROVIDERS: PCP Nurse Practitioner Family; Visit Provider Internal Medicine Critical Care Medicine
DX: D86.0 Sarcoidosis of lung (principal)
CPT/HCPCS: 94010; 94729

== ENCOUNTER → 2020-07-27 08:01 | Outpatient (BNVA) | payer MEDICARE, BC, SELFPAY | PROVIDERS: PCP Nurse Practitioner Family; Visit Provider Nurse Practitioner Family | DX: E11.65 Type 2 diabetes mellitus with hyperglycemia (principal) | CPT/HCPCS: 80053; 80061; 83036; 85025 ==

== ENCOUNTER → 2020-07-28 14:35 | Outpatient (BNVA) | payer MEDICARE, BC, SELFPAY | PROVIDERS: PCP Nurse Practitioner Family; Visit Provider Orthopaedic Surgery | DX: S32.9XXA Fracture of unspecified parts of lumbosacral spine and pelvis, initial encounter for closed fracture (principal); X58.XXXA Exposure to other specified factors, initial encounter | CPT/HCPCS: 72170 ==

== ENCOUNTER 2020-09-29 14:22 | Outpatient (CLI) | payer MEDICARE, BC, SELFPAY ==
--- NOTE | 2020-09-29 14:34 | XRR_ITS ---
PROCEDURE INFORMATION: Exam: XR Chest, 2 Views Exam date and time: 09/29/2020 2:39 PM Age: 70 years old Clinical indication: Condition or disease; Lung condition and disease; Other: Sarcoidosis; Additional info: Lung mass TECHNIQUE: Imaging protocol: XR of the chest Views: 2 views. Total images: 2 COMPARISON: CR XR chest 2V* [id number] 06/30/2020 2:06 PM FINDINGS: Lungs: No appreciable significant interval change in the appearance of the right middle lobe cavitary lesion. Stable nodular alveolar airspace disease process left lower lobe lateral basal segment. Stable small focus of suspected parenchymal scar right upper lobe. No new consolidated alveolar airspace disease process or nodular density identified. Pleural space: Unremarkable. No pleural effusion. No pneumothorax. Heart/Mediastinum: Cardiac structures and configuration stable with mild arteriosclerosis. Bones/joints: Old left humeral head neck fracture. XR/XR chest 2V* [id number] IMPRESSION: No significant will change cardiopulmonary status.
== END 2020-09-29 14:23 | disposition home or self-care (01) ==
PROVIDERS: PCP Family Medicine; Visit Provider Internal Medicine Critical Care Medicine
DX: J98.4 Other disorders of lung (principal); D86.9 Sarcoidosis, unspecified
CPT/HCPCS: 71046

== ENCOUNTER → 2021-03-11 14:17 | Outpatient (BNVA) | payer MEDICARE, BC, SELFPAY | PROVIDERS: PCP Family Medicine; Visit Provider Family Medicine | DX: E11.65 Type 2 diabetes mellitus with hyperglycemia (principal) | CPT/HCPCS: 80053; 80061; 83036; 84443 ==

== ENCOUNTER 2021-04-22 15:21 | Outpatient (CLI) | payer MEDICARE, BC, SELFPAY ==
--- NOTE | 2021-04-22 15:28 | XR_ITS ---
WS: [id number] PA and lateral chest, 04/22/2021 Clinical Data: Cavitary lung disease Comparison: PA and lateral chest, 09/29/2020. Findings: The 5 cm right lung mass and 3.3 cm left lower lobe mass have not changed. There is scarrin g in the right upper lobe unchanged. The heart is normal. The pulmonary vascularity is not remarkable . No effusions are seen. There is no pneumothorax. The aortic arch shows mild calcification. There is a healed fracture of the left humeral neck. There are clips in the right upper quadrant from a deon cystectomy. XR/XR chest 2V* [id number] Impression: 1. No change in right lung and left lower lobe masses. 2. No change in right upper lobe scarring.
== END 2021-04-22 15:22 | disposition home or self-care (01) ==
LOC: RAD 15:27
PROVIDERS: PCP Family Medicine; Visit Provider Internal Medicine Critical Care Medicine
DX: J98.4 Other disorders of lung (principal)
CPT/HCPCS: 71046

== ENCOUNTER → 2022-03-30 11:32 | Outpatient (BNVA) | payer MEDICARE, BC, SELFPAY | PROVIDERS: PCP Family Medicine; Visit Provider Nurse Practitioner Family | DX: E11.9 Type 2 diabetes mellitus without complications (principal) | CPT/HCPCS: 80053; 80061; 82043; 83036; 84443 ==

== ENCOUNTER → 2022-04-22 10:34 | Outpatient (BNVA) | payer MEDICARE, BC, SELFPAY | PROVIDERS: PCP Family Medicine; Visit Provider Internal Medicine Critical Care Medicine | DX: D86.0 Sarcoidosis of lung (principal); Z87.891 Personal history of nicotine dependence; E11.9 Type 2 diabetes mellitus without complications; Z79.84 Long term (current) use of oral hypoglycemic drugs | CPT/HCPCS: 71046; 99213 ==

== ENCOUNTER 2022-06-10 05:59 | Outpatient (CLI) | payer MEDICARE, BC, SELFPAY ==
--- NOTE | 2022-06-10 06:15 | US_ITS ---
WS: [id number] Limited abdomen ultrasound. HISTORY: Evaluate for possible hernia. Midline abdominal mass. Ultrasound directed to the mid supraumbilical region. There is a small defect within the midline abdo ariella wall with herniation of intermediate soft tissue. This is most consistent with a small fat-cont aining supraumbilical hernia. There is no peristalsis identified. No adjacent fluid. Ventral abdomina l wall defect measures approximately 1.1 x 0.7 cm. US/US abdomen limited [id number] IMPRESSION: Supraumbilical small fat-containing hernia.
== END 2022-06-10 06:00 | disposition home or self-care (01) ==
LOC: RAD 06:00
PROVIDERS: PCP Family Medicine; Visit Provider Nurse Practitioner Family
DX: K43.9 Ventral hernia without obstruction or gangrene (principal)
CPT/HCPCS: 76705

== ENCOUNTER 2022-06-10 06:00 | Outpatient (CLI) | payer MEDICARE, BC, SELFPAY ==
--- NOTE | 2022-06-10 10:45 | CT_ITS ---
WS: [id number] CT CHEST WITHOUT INTRAVENOUS CONTRAST HISTORY: Lung nodule TECHNIQUE: Contiguous 5 mm axial imaging performed on the thorax. Coronal and sagittal reformats are submitted. All CT scans at [facility] use at least one of these dose optimization techniques: automated exposure control; mA and/or kV adjustment per patient size (includes targeted exams where dose is matched to clinical indication); or iterative reconstruction. CONTRAST: None DLP: 610.79 mGy.cm COMPARISON: 02/21/2020 CT, chest radiograph 04/22/2022 Lungs and central airway: Multiple bilateral pulmonary nodules and masses are reidentified. For the m ost part there has been no significant change. There is been a slight increase in size of the nodule in the RIGHT upper lobe which abuts the major fissure. This nodule measures 1.5 cm in diameter as com pared to 0.9 cm on the prior study. The adjacent linear nodule is similar to the prior studies. The a dditional multiple, bilobar cavitary lesions are stable. The largest lesion again noted in the RIGHT middle lobe extends through the minor fissure measuring 4.8 x 3.8 cm. These nodules and masses were i nitially identified on 01/29/2020. Pleura: Normal. No pleural effusion. Heart and pericardium: Normal size heart with no pericardial effusion. Mediastinum and h[place]: There is slight fullness at the RIGHT hilum which may represent lymph nodes. Ca nnot evaluate further without IV contrast. No RIGHT paratracheal adenopathy. Vessels: Atherosclerosis aorta. No dilatation of aorta. Chest wall and lower neck: No soft tissue masses. Upper abdomen: Small hiatal hernia. Cholecystectomy. Hepatic steatosis. No adrenal mass. Osseous structures: No destructive process. CT/CT chest wo con [id number] IMPRESSION: 1. Known, bilateral pulmonary nodules and cavitary masses since 01/29/2020. One nodule has increased in size in the RIGHT upper lobe which abuts the fissure. This nodule is very slightly spiculated measuring 1.5 cm in diameter as compare d to 0.9 cm. Recommend [address] follow-up to confirm stability. 2. The remaining pulmonary nodules and cavitary masses may be related to sarco idosis or other granulomatous disease. With no increase in size these are likel y benign. The nodule which has increased in size could be a superimposed neopla sm. 3. Prior cholecystectomy.
== END 2022-06-10 06:01 | disposition home or self-care (01) ==
LOC: RAD 06:00
PROVIDERS: PCP Family Medicine; Visit Provider Internal Medicine Critical Care Medicine
DX: J98.4 Other disorders of lung (principal); R91.8 Other nonspecific abnormal finding of lung field; Z90.49 Acquired absence of other specified parts of digestive tract
CPT/HCPCS: 71250

== ENCOUNTER → 2022-07-18 10:55 | Outpatient (BNVA) | payer MEDICARE, BC, SELFPAY | PROVIDERS: PCP Family Medicine; Visit Provider Nurse Practitioner Family | DX: E11.9 Type 2 diabetes mellitus without complications (principal); F41.9 Anxiety disorder, unspecified; J06.9 Acute upper respiratory infection, unspecified; E11.65 Type 2 diabetes mellitus with hyperglycemia; J30.2 Other seasonal allergic rhinitis | CPT/HCPCS: 80053; 80061; 83036 ==

== ENCOUNTER → 2023-02-03 11:47 | Outpatient (BNVA) | payer MEDICARE, BC, SELFPAY | PROVIDERS: PCP Family Medicine; Visit Provider Nurse Practitioner Family | DX: E11.65 Type 2 diabetes mellitus with hyperglycemia (principal); K59.00 Constipation, unspecified | CPT/HCPCS: 80053; 80061; 83036; 84443 ==

== ENCOUNTER → 2023-04-20 11:34 | Outpatient (BNVA) | payer MEDICARE, BC, SELFPAY | PROVIDERS: PCP Nurse Practitioner Family; Visit Provider Internal Medicine Pulmonary Disease | DX: D86.0 Sarcoidosis of lung (principal); J06.9 Acute upper respiratory infection, unspecified | CPT/HCPCS: 71046; 99214 ==

== ENCOUNTER → 2023-06-05 07:29 | Outpatient (BNVA) | payer MEDICARE, BC, SELFPAY | PROVIDERS: PCP Nurse Practitioner Family; Visit Provider Internal Medicine Pulmonary Disease | DX: J06.9 Acute upper respiratory infection, unspecified (principal); D86.0 Sarcoidosis of lung; R91.8 Other nonspecific abnormal finding of lung field; Z87.891 Personal history of nicotine dependence; Z86.16 Personal history of COVID-19 | CPT/HCPCS: 99214 ==

== ENCOUNTER 2023-06-23 12:10 | Outpatient (CLI) | payer MEDICARE, BC, SELFPAY ==
--- NOTE | 2023-06-23 12:30 | CTR_ITS ---
PROCEDURE INFORMATION: Exam: CT Chest Without Contrast; Diagnostic Exam date and time: 06/23/2023 12:49 PM Age: 72 years old Clinical indication: Other: Pulmonary sarcoidosis; Additional info: Follow up TECHNIQUE: Imaging protocol: Diagnostic computed tomography of the chest without contrast. Radiation optimization: All CT scans at this facility use at least one of these dose optimization techniques: automated exposure control; mA and/or kV adjustment per patient size (includes targeted exams where dose is matched to clinical indication); or iterative reconstruction. REPORTING DATA: Count of CT and Cardiac NM exams in prior 12 months: This patient has received 0 known CTs and 0 known cardiac nuclear medicine studies in the 12 months prior to the current study. COMPARISON: CT chest wo con [id number] 06/10/2022 9:58 AM RADIATION DOSE METRICS: Total DLP (mGy-cm): 259.61 FINDINGS: Lungs: Multiple pulmonary nodules/masses are again identified. There is enlargement of the right upper lobe nodule abutting the fissure today measuring 1.9 x 1.6 x 2.0 cm where previously it measured 1.7 x 1.2 x 1.9 cm. Cavitary mass right middle lobe is larger now measuring 4.3 x 6.7 x 5.3 cm where previously it measured 3.7 x 4.8 x 4.0 cm. Cavitary mass left lower lobe now measures 2.2 x 3.9 x 3.0 cm where previously it measured 1.9 x 3.6 x 2.7 cm. Some of the nodular densities have not changed significantly in appearance including bilateral nodular densities in the upper lobes series 4, image 20, left upper lobe nodule image 25 and additional smaller scattered nodules. No new nodules are identified. A few scattered calcified pulmonary granulomata are noted. There is no airspace consolidation. Pleural spaces: Unremarkable. No pneumothorax. No pleural effusion. Heart: Unremarkable. No cardiomegaly. No pericardial effusion. Coronary arteries: There is mild atherosclerotic calcification of the coronary arteries. Lymph nodes: There is unchanged mild enlargement of the haleigh suspected to reflect lymph nodes/borderline adenopathy. No new or increasing adenopathy. Vasculature: Unremarkable. No aortic aneurysm. Diaphragm: A small hiatal hernia is present. Gallbladder and bile ducts: There has been a cholecystectomy. Bones/joints: Unremarkable. No acute fracture. Soft tissues: Unremarkable. CT/CT chest wo con [id number] IMPRESSION: 1. Multiple pulmonary nodules/masses. The largest 3, two of which are cavitary, have increased in size compared to the prior exam. Smaller nodules are stable. Fleischner Society follow up recommendations for incidental nodules are not indicated. Follow up per the patient's medical condition. 2. Unchanged hilar enlargement suspected to be due to lymph nodes. No new or progressing adenopathy. No new pulmonary nodule.
== END 2023-06-23 12:11 | disposition home or self-care (01) ==
PROVIDERS: PCP Nurse Practitioner Family; Visit Provider Internal Medicine Pulmonary Disease
DX: D86.0 Sarcoidosis of lung (principal); R91.8 Other nonspecific abnormal finding of lung field
CPT/HCPCS: 71250; 94010; 94729

== ENCOUNTER 2023-07-04 09:57 | Outpatient (CLI) | payer MEDICARE, BC, SELFPAY ==
[2023-07-07 17:11] LABS: Quantiferon Mitogen 9.56 IU/mL; Quantiferon Nil 0.02 IU/mL; Quantiferon TB Gold NEGATIVE (NEGATIVE)
[2023-07-09 01:49] LABS: Aspergillus Source WHOLE BLOOD; Aspergillus Supp NOT DETECTED; Aspergillus Terreus DNA NOT DETECTED
[2023-07-10 17:49] LABS: Coccidioides IgG Antibody NEGATIVE; Coccidioides IgM Antibody NEGATIVE
[2023-07-10 18:00] LABS: Histoplasma capsulatum H Ab NEGATIVE; Histoplasma capsulatum M Ab NEGATIVE
[2023-07-10 21:34] LABS: Aspergillus AG,EIA,Serum NOT DETECTED; Aspergillus Galactomannan Inde <0.50
[2023-07-12 18:49] LABS: Histoplasma Antigen (Quant) NONE DETECTED; Histoplasma Antigen Interpreta NEGATIVE; Histoplasma Antigen Specimen PLASMA
[2023-07-13 14:55] LABS: Blastomyces AB Immunodiffusion Negative (Negative); Blastomyces Dermatitidis AB <1:8 titer (<1:8)
== END 2023-07-04 09:58 | disposition home or self-care (01) ==
PROVIDERS: PCP Nurse Practitioner Family; Visit Provider Internal Medicine Pulmonary Disease
DX: J98.4 Other disorders of lung (principal)
CPT/HCPCS: 36415; 83516; 86480; 86606; 86612; 86635; 86698; 87305; 87385; 87449; 87798

== ENCOUNTER 2023-07-06 09:44 | Outpatient (CLI) | payer MEDICARE, BC, SELFPAY ==
[2023-07-15 00:20] LABS: Histoplasma Galactomannan Ag <0.2 ng/mL
== END 2023-07-06 09:45 | disposition home or self-care (01) ==
PROVIDERS: PCP Nurse Practitioner Family; Visit Provider Internal Medicine Pulmonary Disease
DX: J98.4 Other disorders of lung (principal)
CPT/HCPCS: 87015; 87116; 87206; 87385; 87801

== ENCOUNTER 2023-08-25 17:49 | Emergency (ER) | payer MEDICARE, BC, SELFPAY ==
[2023-08-25 17:59] VITALS: BP 136/83; PULSE 85; RESP 18; TEMP 36.6; O2SAT 96; BMI 19.8
--- NOTE | 2023-08-25 18:12 | XRR_ITS ---
PROCEDURE INFORMATION: Exam: XR Chest Exam date and time: 08/25/2023 6:20 PM Age: 72 years old Clinical indication: Other: Pnx; Additional info: Cp TECHNIQUE: Imaging protocol: Radiologic exam of the chest. Views: 1 view. COMPARISON: CT chest [facility] [id number] 06/23/2023 12:49 PM FINDINGS: Lungs: Bilateral pulmonary nodules and masses seen to much better advantage on the recent chest CT dated 06/23/2023. Pleural spaces: No pneumothorax. Heart/Mediastinum: Unremarkable. No cardiomegaly. Bones/joints: Unremarkable. XR/XR chest 1V portable [id number] IMPRESSION: 1. No pneumothorax. 2. Bilateral pulmonary nodules and masses seen to much better advantage on the recent chest CT dated 06/23/2023.
[2023-08-25 18:17] VITALS: BP 117/69; O2SAT 99
[2023-08-25 18:43] VITALS: BP 116/61; PULSE 98; O2SAT 98
--- NOTE | 2023-08-25 18:43 | W.ED.GENADLT ---
HPI - General Adult General: Chief complaint: General Medical Stated complaint: pneumonia, pain breathing Time Seen by Provider: 08/25/23 18:17 History of Present Illness: Patient presents to the ER with right-sided anterior chest wall pain that is reproducible with palpation big deep breathing and coughing. Patient was diagnosed with pneumonia on Monday and started on antibiotics. Patient's is feeling better overall except for this pain. This pain is, sharp and stabbing in nature is worse when she takes a big deep breath or coughs. Patient has not taken any pain medicine even Tylenol for this pain. Review of Systems General: Reports: 10 or more systems reviewed and unremarkable except in HPI and below PFSH ED PFSH: Medical History (Updated 08/25/23 @ 18:47 by Gavino Garcia DO) Diabetes Traumatic partial tear of right biceps tendon Surgical History S/P cholecystectomy Family History Father CHF (congestive heart failure) Mother CHF (congestive heart failure) Family/Other Stroke Other Cancer Social History Smoking and tobacco/nicotine status: former use of tobacco/nicotine Quit status (tobacco/nicotine): has quit using Year quit tobacco: 1992 >0.5 PPD x 6 months Second hand smoke exposure: Yes Alcohol intake: never Substance/Drug Use: never Lives independently: Yes Household members: spouse Marital status: Current occupational status: employed Current occupation: [employer] Current occupational exposures/hazards: Yes Do you think of yourself as: Straight/Heterosexual Current gender identity: Female Physical Exam Const: COMMON NORMALS: no acute distress, average body habitus, patient oriented x3, no limitations, healthy appearing, alert and well nourished HENMT: COMMON NORMALS: normocephalic, atraumatic, hearing grossly normal bilaterally, external ears normal, Normal external nose present, moist oral mucous membranes and oropharynx normal HEAD & SCALP: normocephalic and atraumatic NOSE: Normal external nose present EXTERNAL EAR: Yes external ears normal Neck/C-Spine: COMMON NORMALS: no JVD Chest: COMMONS NORMALS: normal inspection of the chest; negative for normal palpation of entire chest wall (Tender to palpation right anterior chest wall especially in between the rib) Resp: COMMON NORMALS: normal respiratory effort, No retractions, No use of accessory muscles and clear to auscultation bilaterally AUSCULTATION: clear to auscultation bilaterally Cardio: COMMON NORMALS: no JVD, regular rate, regular rhythm, S1 normal heart sound present, S2 normal heart sound present, No gallops present (Cardio), No clicks present (Cardio), No murmurs present (Cardio) and No rub (Cardio) RATE: regular rate RHYTHM: regular rhythm HEART SOUNDS: S1 normal heart sound present and S2 normal heart sound present Neuro: COMMON NORMALS: patient oriented x3 SENSORIUM/ORIENTATION: Yes alert Course Vital Signs: Vital signs: Vital Signs Temperature 98 F 08/25/23 17:59 Pulse Rate 98 08/25/23 18:43 Respiratory Rate 18 08/25/23 17:59 Blood Pressure 116/61 08/25/23 18:43 Pulse Oximetry 98 08/25/23 18:43 Oxygen Delivery Me thod Room Air 08/25/23 18:43 MDM - General Adult Medical Decision Making Patient has anterior chest wall pain in between her ribs. This is worse when she coughs takes a big deep breath. It is felt that she strained her intercostal muscles. Patient had a chest x-ray as read by the radiologist. Patient be discharged home to take Tylenol for her pain. Differential Diagnosis Anterior chest wall pain, intercostal muscle strain Medical Records I reviewed the patient's medical records. Lab Data I reviewed the patient's lab results. Radiology Impressions Chest X-Ray 08/25/23 18:12 IMPRESSION: 1. No pneumothorax. 2. Bilateral pulmonary nodules and masses seen to much better advantage on the recent chest CT dated 06/23/2023. All radiology interpretation(s) finalized by discharge Discharge Plan Discharge Patient Disposition: Home Clinical Impression: Anterior chest wall pain Condition: Stable Prescriptions: No Action acetaminophen [Tylenol] 325 mg tablet 500 mg PO QID PRN (Reason: Pain) methylprednisolone [Medrol (Amol)] 4 mg tablets,dose pack See Rx Instructions PO PER PKG DIR Qty: 21 0RF Rx Instructions: PO PER PKG DIR promethazine-DM 6.25-15 mg/5 mL syrup 5 ml PO Q6H PRN (Reason: cough) Qty: 200 0RF Jardiance 25 mg tablet 25 mg PO DAILY 90 Days Qty: 90 1RF benzonatate 100 mg capsule 100 mg PO TID PRN (Reason: cough) Qty: 30 1RF alprazolam 0.25 mg tablet 0.25 mg PO TID PRN (Reason: anxiety) 30 Days Qty: 90 0RF levofloxacin 500 mg tablet 500 mg PO DAILY 3 Days Qty: 3 0RF Discharge Orders: Discharge ED (Routine); Ordered 08/25/23 Ordered By: Gavino Garcia Referrals: Keanu Frey MD [Primary Care Provider] - 1 week Patient Instructions: Chest Pain - Chest Wall Activity Restrictions/Additional Instructions: Please take [id number] Tylenol as directed for your chest wall pain. Please finish the antibiotics as previously prescribed. Please follow-up with your family practice doctor within the next 7 to 10 days as needed for further evaluation and treatment. 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
[2023-08-25 18:52] VITALS: BP 128/69; PULSE 84; O2SAT 97
== END 2023-08-25 18:55 | disposition home or self-care (01) ==
PROVIDERS: Emergency Provider Emergency Medicine; PCP Internal Medicine
DX: R07.89 Other chest pain (principal); Z87.891 Personal history of nicotine dependence; E11.9 Type 2 diabetes mellitus without complications
CPT/HCPCS: 71045; 99283

== ENCOUNTER 2023-09-06 10:35 | Outpatient (CLI) | payer MEDICARE, BC, SELFPAY ==
[2023-09-13 17:45] LABS: Coccidioides AB CF Serum <1:2
[2023-09-14 22:04] LABS: Coccidioides IgG Antibody NEGATIVE; Coccidioides IgM Antibody NEGATIVE
== END 2023-09-06 10:36 | disposition home or self-care (01) ==
LOC: LAB 10:36
PROVIDERS: PCP Internal Medicine; Visit Provider Internal Medicine Pulmonary Disease
DX: J98.4 Other disorders of lung (principal)
CPT/HCPCS: 36415; 86635

== ENCOUNTER → 2023-09-08 08:06 | Outpatient (BNVA) | payer MEDICARE, BC, SELFPAY | PROVIDERS: PCP Internal Medicine; Visit Provider Internal Medicine Pulmonary Disease | DX: D86.0 Sarcoidosis of lung (principal); R91.8 Other nonspecific abnormal finding of lung field; Z87.891 Personal history of nicotine dependence; M31.30 Wegener's granulomatosis without renal involvement | CPT/HCPCS: 99214 ==

== ENCOUNTER → 2023-12-11 08:09 | Outpatient (BNVA) | payer MEDICARE, BC, SELFPAY | PROVIDERS: PCP Internal Medicine; Visit Provider Internal Medicine Pulmonary Disease | DX: D86.0 Sarcoidosis of lung (principal); R91.8 Other nonspecific abnormal finding of lung field | CPT/HCPCS: 99214 ==

== ENCOUNTER 2024-01-09 13:16 | Outpatient (CLI) | payer MEDICARE, BC, SELFPAY | END 2024-01-09 13:17 | disposition home or self-care (01) | LOC: RT 13:17 | PROVIDERS: PCP Internal Medicine; Visit Provider Internal Medicine Pulmonary Disease | DX: D86.0 Sarcoidosis of lung (principal) | CPT/HCPCS: 94010; 94726; 94729 ==

== ENCOUNTER 2024-01-09 13:53 | Outpatient (CLI) | payer MEDICARE, BC, SELFPAY ==
--- NOTE | 2024-01-09 14:00 | CT_ITS ---
WS: [id number] CT chest wo con [id number] HISTORY: Hemoptysis TECHNIQUE: Axial imaging performed through the thorax. Coronal and sagittal reformats are submitted. All CT scans at [facility] use at least one of these dose optimization techniques: automated exposure control; mA and/or kV adjustment per patient size (includes targeted exams where dose is mat ched to clinical indication); or iterative reconstruction. CONTRAST: Omnipaque 350; 100 mL IV. DLP: 238.43 mGy.cm COMPARISON: 06/23/2023 and 01/29/2020 Lungs and central airway: Patient has known and relatively stable bilateral pulmonary nodules, masses and cavitary opacifications. As compared to the most recent study there is been no obvious progressi on of these cavitations or nodules. Some of the masses and opacifications have decreased slightly in size. The largest cavitation appears to be in a collapsed RIGHT middle lobe measuring 4.1 x 3.2 cm. T his cavitation extends across the RIGHT minor fissure. There is associated bronchiectasis and atelect asis in the RIGHT middle lobe cavitation. Pleura: Normal. No pleural effusion. Heart and pericardium: Normal size heart with no pericardial effusion. Mediastinum and haleigh: No adenopathy is identified. There is fullness at the RIGHT hilum. Difficult to evaluate for lymphadenopathy without IV contrast. Vessels: Mild atherosclerosis aorta. No aneurysm. Normal size pulmonary artery. Chest wall and lower neck: No soft tissue masses. Upper abdomen: Mild atherosclerosis aorta. Osseous structures: Mild increase in thoracic kyphosis. IMPRESSION: 1. Known bilateral, multi lobar masses, nodules and cavitary masses since 01/29/2020. 2. Largest mass centered in the atelectatic RIGHT middle lobe does extend across the fissure into th e RIGHT upper lobe. There is associated atelectasis and bronchiectasis with this cavitary lesion. 3. No pneumonia.
== END 2024-01-09 13:54 | disposition home or self-care (01) ==
LOC: RAD 13:53
PROVIDERS: PCP Internal Medicine; Visit Provider Internal Medicine Pulmonary Disease
DX: D86.0 Sarcoidosis of lung (principal); J98.4 Other disorders of lung; R91.8 Other nonspecific abnormal finding of lung field; J98.11 Atelectasis; J47.9 Bronchiectasis, uncomplicated
CPT/HCPCS: 71250; 94010; 94726; 94729

== ENCOUNTER → 2024-03-11 07:51 | Outpatient (BNVA) | payer MEDICARE, BC, SELFPAY | PROVIDERS: PCP Internal Medicine; Visit Provider Internal Medicine Pulmonary Disease | DX: J98.4 Other disorders of lung (principal); D86.0 Sarcoidosis of lung; Z87.891 Personal history of nicotine dependence | CPT/HCPCS: 99214 ==

== ENCOUNTER 2025-01-17 14:35 | Emergency (ER) | payer OTHER, SELFPAY ==
[2025-01-17 14:47] VITALS: BP 119/73; PULSE 78; RESP 18; TEMP 36.7; BMI 19.0
--- NOTE | 2025-01-17 15:10 | XRR_ITS ---
PROCEDURE INFORMATION: Exam: XR Right Hand Exam date and time: 01/17/2025 4:25 PM Age: 74 years old Clinical indication: Injury or trauma; Fall; Blunt trauma (contusions or hematomas); Hand; Right; Additional info: Right hand pain after impact injury TECHNIQUE: Imaging protocol: Radiologic exam of the right hand. Views: 3 or more views. COMPARISON: No relevant prior studies available. FINDINGS: Bones/joints: There is oblique fracture of the midshaft of the right 5th metacarpal. Bones are moderately osteopenic. Soft tissues: Mild soft tissue swelling. XR/XR hand RT min 3V* [id number] IMPRESSION: Fracture right 5th metacarpal.
--- NOTE | 2025-01-17 16:24 | ED_ITS ---
HPI - General Adult General: Chief complaint: General Medical Stated complaint: right side face and arm pain Time Seen by Provider: 01/17/25 16:18 Source: patient Mode of arrival: ambulatory Limitations: no limitations History of Present Illness: The patient reports that she was involved in an incident where a ramp came back and hit her hand and ear while trying to untangle a cord to prevent a potential hazard. She describes significant pain in her hand and tenderness in the ear. The patient reports not having a headache, dizziness, or any symptoms on the side of the head affected. Patient reports pain with any movement of her right pinky or fourth digit in the hand. She has not taken thing for pain or applied any ice to the injury. Related Data Home Medications ?Medication ?Instructions ?Recorded ?Confirmed acetaminophen 325 mg tablet 500 mg PO QID PRN Pain 03/11/24 (Tylenol) Previous Rx's ?Medication ?Instructions ?Recorded alprazolam 0.25 mg tablet 0.25 mg PO TID PRN anxiety 3 0 days 04/29/22 #90 tabs promethazine-DM 6.25 mg-15 mg/5 mL 5 ml PO Q6H PRN cou gh #200 mL 03/13/23 oral syrup benzonatate 100 mg capsule 100 mg PO TID PRN cough #30 caps 06/05/23 calcium 600 mg (as carbonate)-vit 1 tab PO .q12 #60 ta bs 12/11/23 D3 10 mcg (400 unit) chewable tablet (Calcium 600 with Vitamin D3) omeprazole magnesium 20 mg 20 mg PO DAILY #30 caps 01/30 capsule,delayed release (Acid Solar Installation Supervisor (omeprazole)) fluticasone fur. 100 mcg-umeclid 1 inh inhalation SAMANTHA Y #60 ea 03/11/24 62.5 mcg-vilant 25 mcg inhalat.powder (Trelegy Ellipta) pantoprazole 40 mg tablet,delayed 40 mg PO DAILY #30 t abs 03/11/24 release prednisone 10 mg tablet 10 mg PO DAILY #30 tabs 12/30 Allergies Allergy/AdvReac Type Severity Reaction Status Date / Time amoxicillin Allergy ALGY-Hives Verified 03/11/24 08:21 ampicillin Allergy ALGY-Hives Verified 03/11/24 08:21 Penicillins Allergy ALGY-Hives Verified 03/11/24 08:21 Tetanus Vaccines and Toxoid Allergy ALGY-Hives Verified 03/11/24 08:21 Review of Systems Narrative: Review of Systems: - Constitutional: No acute distress - HEENT: Tenderness in the ear, but no h eadache or dizziness - Respiratory: No shortness of breath - Cardiovascular: No chest pain - Gastrointestinal: No nausea, vomiting, diarrhea, or constipation - Neurological: No dizziness or focal de ficits - Musculoskeletal: Significant pain in t he hand without confirmed fracture - Skin: Reports no rashes PFSH ED PFSH: Medical History (Updated 01/17/25 @ 16:48 by Maritza Arias PA-C) Diabetes Traumatic partial tear of right biceps tendon Surgical History S/P cholecystectomy Family History Father Congestive heart failure (CHF) Mother Congestive heart failure (CHF) Family/Other Stroke Other Cancer Social History Smoking and tobacco/nicotine status: former use of tobacco/nicotine Quit status (tobacco/nicotine): has quit using Year quit tobacco: 1992 >0.5 PPD x 6 months Second hand smoke exposure: Yes Alcohol intake: never Substance/Drug Use: never Lives independently: Yes Household members: spouse Marital status: Current occupational status: employed Current occupation: [employer] Current occupational exposures/hazards: Yes Do you think of yourself as: Straight/Heterosexual Current gender identity: Female Physical Exam Const: COMMON NORMALS: no acute distress, average body habitus and alert HENMT: COMMON NORMALS: normocephalic, atraumatic and external ears normal (R ear with mild erythema but not broken skin or bruising) HEAD & SCALP: normocephalic and atraumatic EXTERNAL EAR: Yes external ears normal (R ear with mild erythema but not broken skin or bruising) Eye: COMMON NORMALS: conjunctivae normal CONJUNCTIVA: Yes conjunctivae normal Neck/C-Spine: COMMON NORMALS: full ROM and no lymphadenopathy Resp: COMMON NORMALS: normal respiratory effort Cardio: COMMON NORMALS: regular rate, regular rhythm and No murmurs present (Cardio) RATE: regular rate RHYTHM: regular rhythm Extremity: NARRATIVE EXTREMITY EXAM: Patient has moderate swelling over the right fifth metacarpal with mild bruising noted. Patient has decreased range of motion secondary to pain of the fifth and fourth digit of the right hand. no obvious tenting is noted. Neuro: SENSORIUM/ORIENTATION: Yes alert Psych: COMMON NORMALS: mental status grossly normal, Normal thought process present and cooperative THOUGHT PROCESS: Normal thought process present Skin: NARRATIVE SKIN EXAM: bruising but otherwise normal exam Course ED course: Patient presented to the ER after an injury this afternoon. Patient appeared to have bruising of the right hand and x-ray does indicate an oblique fracture through the right fifth metacarpal. There was no angulation or displacement noted. Patient was placed in a splint and she tolerated that well. Follow-up was discussed with patient. Pain was minimal at this time. She will alternate Tylenol and ibuprofen at home. Was also recommended patient apply ice and elevate hand to reduce swelling. The exam of the ear and head was unremarkable and I discussed with patient that a CT was not warranted at this time as she had no symptoms associated with concussion or head injury. Vital Signs: Vital signs: Vital Signs Temperature 98.1 F 01/17/25 14:47 Pulse Rate 84 01/17/25 17:22 Respiratory Rate 18 01/17/25 14:47 Blood Pressure 142/74 01/17/25 17:22 Pulse Oximetry 99 01/17/25 17:22 MDM - General Adult Medical Decision Making Patient has a fracture of the right fifth metacarpal carpal. Patient was placed in splint and did very well with that and will follow-up with Ortho next week. Pain was mild at this time so we discussed Tylenol and ibuprofen at home along with ice and elevation. A CT was not warranted of the head based on physical exam and history. For any new or worsening symptoms patient can return to the ER. Lab Data Radiology Impressions Hand X-Ray 01/17/25 15:10 IMPRESSION: Fracture right 5th metacarpal. All radiology interpretation(s) finalized by discharge Discharge Plan Discharge Patient Disposition: Home Clinical Impression: Fracture of fifth metacarpal bone of right hand Qualifiers: Encounter type: initial encounter Fracture type: closed Metacarpal location: shaft Fracture alignment: nondisplaced Qualified Code(s): S62.356A - Nondisplaced fracture of shaft of fifth metacarpal bone, right hand, initial encounter for closed fracture Condition: Stable Prescriptions: No Action acetaminophen [Tylenol] 325 mg tablet 500 mg PO QID PRN (Reason: Pain) promethazine-DM 6.25-15 mg/5 mL syrup 5 ml PO Q6H PRN (Reason: cough) Qty: 200 0RF Calcium 600 with Vitamin D3 600 mg-10 mcg (400 unit) tablet,chewable 1 tab PO .q12 Qty: 60 3RF omeprazole magnesium [Acid Solar Installation Supervisor (omeprazole)] 20 mg capsule,delayed release(DR/EC) 20 mg PO DAILY Qty: 30 3RF prednisone 10 mg tablet 10 mg PO DAILY Qty: 30 3RF pantoprazole 40 mg tablet,delayed release (DR/EC) 40 mg PO DAILY Qty: 30 3RF Rx Instructions: empty stomach Trelegy Ellipta 100-62.5-25 mcg blister with device 1 inh inhalation DAILY Qty: 60 3RF benzonatate 100 mg capsule 100 mg PO TID PRN (Reason: cough) Qty: 30 1RF alprazolam 0.25 mg tablet 0.25 mg PO TID PRN (Reason: anxiety) 30 Days Qty: 90 0RF Discharge Orders: Discharge ED (Routine); Ordered 01/17/25 Ordered By: Maritza Arias Referrals: Keanu Frey MD [Primary Care Provider] - Discharge Diet: Usual diet Discharge Activity: Limit activity as instructed Patient Instructions: Opioid Safety, Pain Management Activity Restrictions/Additional Instructions: Do not get splint wet. Take ibuprofen alternated with tylenol for pain. Keep elevated to reduce swelling. F/U with ortho in 5-7 days. 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
[2025-01-17 17:22] VITALS: BP 142/74; PULSE 84; O2SAT 99
--- NOTE | 2025-01-20 07:32 | DCPLANNER ---
messaged ortho for er f/u
== END 2025-01-17 17:23 | disposition home or self-care (01) ==
PROVIDERS: Emergency Provider Physician Assistant; PCP Internal Medicine
DX: S62.356A Nondisplaced fracture of shaft of fifth metacarpal bone, right hand, initial encounter for closed fracture (principal); Z87.891 Personal history of nicotine dependence; E11.9 Type 2 diabetes mellitus without complications; W22.8XXA Striking against or struck by other objects, initial encounter
CPT/HCPCS: 73130; 99283

== ENCOUNTER → 2025-01-22 09:01 | Outpatient (BNVA) | payer OTHER, SELFPAY | PROVIDERS: PCP Internal Medicine; Visit Provider Specialist | DX: S62.356A Nondisplaced fracture of shaft of fifth metacarpal bone, right hand, initial encounter for closed fracture (principal); X58.XXXA Exposure to other specified factors, initial encounter | CPT/HCPCS: 73130 ==

== ENCOUNTER 2025-01-22 10:54 | Outpatient (CLI) | payer OTHER, SELFPAY | END 2025-01-22 10:55 | disposition home or self-care (01) | LOC: SPT 10:57 | PROVIDERS: PCP Internal Medicine; Visit Provider Specialist | DX: Z46.89 Encounter for fitting and adjustment of other specified devices (principal); S62.356D Nondisplaced fracture of shaft of fifth metacarpal bone, right hand, subsequent encounter for fracture with routine healing; X58.XXXD Exposure to other specified factors, subsequent encounter | CPT/HCPCS: 97760; L3984 ==

== ENCOUNTER → 2025-02-05 10:37 | Outpatient (BNVA) | payer OTHER, SELFPAY | PROVIDERS: PCP Internal Medicine; Visit Provider Specialist | DX: S62.356D Nondisplaced fracture of shaft of fifth metacarpal bone, right hand, subsequent encounter for fracture with routine healing (principal); X58.XXXD Exposure to other specified factors, subsequent encounter | CPT/HCPCS: 73130 ==

== ENCOUNTER → 2025-02-19 15:19 | Outpatient (BNVA) | payer OTHER, SELFPAY | PROVIDERS: PCP Internal Medicine; Visit Provider Specialist | DX: Z98.890 Other specified postprocedural states (principal) | CPT/HCPCS: 73130 ==

== ENCOUNTER → 2025-03-19 15:51 | Outpatient (BNVA) | payer OTHER, SELFPAY | PROVIDERS: PCP Internal Medicine; Visit Provider Specialist | DX: S62.356D Nondisplaced fracture of shaft of fifth metacarpal bone, right hand, subsequent encounter for fracture with routine healing (principal); X58.XXXD Exposure to other specified factors, subsequent encounter | CPT/HCPCS: 73130 ==

== ENCOUNTER 2025-04-23 07:52 | Outpatient (CLI) | payer MEDICARE, SELFPAY ==
--- NOTE | 2025-04-23 07:56 | CT_ITS ---
WS: [id number] CT chest wo con [id number] HISTORY: LUNG NODULES/CAVITARY LESION OF LUNG TECHNIQUE: Axial imaging performed through the thorax. Coronal and sagittal reformats are submitted. All CT scans at [facility] use at least one of these dose optimization techniques: automated exposure control; mA and/or kV adjustment per patient size (includes targeted exams where dose is matched to clinical indication); or iterative reconstruction. CONTRAST: None DLP: 306.57 mGy.cm COMPARISON: 01/09/2024, 06/10/2022 Lungs and central airway: Numerous bilateral pulmonary nodules. Some of these nodules contain central calcifications. Spiculated solid nodule in the RIGHT upper lobe abuts the fissure measuring 1.6 x 2.0 x 2.1 cm. Very slight increase in size since the prior study. The cavitary lesion with associated bronchiectasis and atelectasis in the RIGHT middle lobe is reidentified without change. Pleural-based mass at the LEFT lung base measures 2.2 x 1.7 x 2.2 cm without change. Additional pulmonary nodules bilaterally in the upper lung jaime are unchanged. No new mass identified. Pleura: Normal. No pleural effusion. Heart and pericardium: Heart is slightly enlarged. No pericardial effusion. Mediastinum and haleigh: No adenopathy appreciated on this unenhanced exam. Similar configuration to the mediastinum as on the prior study. Vessels: Mild atherosclerosis aorta. No aneurysm. Dilated pulmonary artery. Pulmonary artery measures 3.1 cm. Chest wall and lower neck: No soft tissue masses. Upper abdomen: Prior cholecystectomy. Splenic artery calcifications. Small hiatal hernia. No adrenal mass. Osseous structures: Mild thoracic spondylosis. No destructive bone lesions. CT/CT chest wo con [id number] IMPRESSION: 1. Numerous bilateral pulmonary nodules. Some of these contain calcifications . Previously described cavitary lesion is now more solid with decreasing cavita tion compared to the prior study. 2. Spiculated nodule in the RIGHT upper lobe abutting the fissure has slightly increased in size now measuring 1.6 x 2.0 x 2.1 cm. This nodule has slowly inc reased in size since 2019. Neoplasm is not excluded. This nodule may have under gone prior bronchoscopy with biopsy. No prior PET/CT. 3. No mediastinal or hilar adenopathy. 4. Dilated pulmonary artery. 5. Mild cardiomegaly.
== END 2025-04-23 07:53 | disposition home or self-care (01) ==
PROVIDERS: PCP Internal Medicine; Visit Provider Internal Medicine Critical Care Medicine
DX: J98.4 Other disorders of lung (principal); R91.8 Other nonspecific abnormal finding of lung field; R91.1 Solitary pulmonary nodule; I28.8 Other diseases of pulmonary vessels; I51.7 Cardiomegaly
CPT/HCPCS: 71250

== ENCOUNTER 2025-08-18 06:15 | Observation (INO) | payer MEDICARE, BC, SELFPAY ==
--- OUTSIDE RECORDS SUMMARY | 2025-06-16 02:00 | XMS_ITS ---
Author Organization [facility] Address [address] [place] [address] Care Team Providers Care Transit Survey Worker Name Role Phone Celso Frey Primary Care Provider [phone] REASON FOR VISIT 3 MONTH F/U Encounters Encounter Location Date Provider Diagnosis [facility] [address] [facility] [address] [place] [address] 06/16/2025 Celso Frey Plan Of Treatment Next Appt Details Provider Name:Celso Frey, 2025 08:00:00 AM, [address], [place], [address], Progress Notes * SKYLAR TOMPKINS DDOB: (74 yo F)Acc No.[id number]:06/16/2025 Progress Notes Patient: Jose A BARRERA SKYLAR Ge Provider: Fercho Frey MD :1950 A ge:74 Y S ex:Female Date:06/16/2025 Address:[address] , [place], [id number] Subjective: * Chief Complaints: * 3 MONTH F/U Care Plan Details* * Electronic signature of Davi Frey MD on 08/18/2025 at 06:18 AM [employer]ABLE BUNCHER Sign off status: Pending * Provider: Fercho Frey MD Date: 0 06/16/2025 Generated for Mary Beth ng/Faxing/eTransmitting on: 1 10/18/2024 06:18 AM [employer]GETABLE BUNCHER
[2025-08-18] VITALS (12 sets, daily range): BP systolic 104–149; BP diastolic 59–72; PULSE 60–78; RESP 16–19; TEMP 36.3–36.6; O2SAT 92–99; BMI 24.0; BMI 24.9
--- OUTSIDE RECORDS SUMMARY | 2025-08-18 06:19 | XMS_ITS | Clinical Summary ---
Author Organization [facility] Address [address] [place] [address] Care Team Providers Care Buttonhole Marker Name Role Phone Unavailable Primary Care Provider Unavailabl e Allergies Active Allergy Reactions Criticality Noted Date Comments Amoxicillin Rash,Headache Low 05/15/2024 Penicillins Rash,Headache Low 05/15/2024 Prednisone Unknown 05/15/2024 Promethazine Rash Low 08/30/2024 Tetanus Immune Globulin Rash Low 08/30/2024 Medications tiotropium (SPIRIVA RESPIMAT) 1.25 mcg/actuation MistIndication s:Sarcoidosis Take 2 Puffs by inhalation daily. 4 Gram 6 4 Active predniSONE (DELTASONE) 20 mg tablet Take 20 mg by mouth see administration instructions. Active ascorbic acid, vitamin C, (VITAMIN C) 1,000 mg Tablet Take 1,000 mg by mouth daily. Active acetaminophen (TYLENOL) 500 mg tablet Take 500 mg by mouth every 6 hours as needed for Pain. Active pregabalin (LYRICA) 100 mg Capsule Take 1 Capsule by mouth 2 times daily. 5 Active fluticasone propion-salmet Jez (Advair HFA) 115-21 mcg/actuation HFA Aerosol InhalerIndicat ions:Sarcoidos is Take 2 Puffs by inhalation every 12 hours. 12 Gram 6 5 Active Active Problems No known active problems Encounters Date Type Department Care Team Description 07/30/2025 External Device Data STL ABSTRACTION Provider, Abstract 07/29/2025 External Device Data STL ABSTRACTION Provider, Abstract 07/01/2025 External Device Data ST[facility] ABSTRACTION Provider, Abstract 06/24/2025 External Device Data STL ABSTRACTION Provider, Abstract from Last 3 Months Social History Tobacco Use Types Packs/Day Years Used Date Smoking Tobacco: Former Cigarettes 0.3 1 1 981 - 1981 Passive Smoke Exposure: Current Smokeless Tobacco: Never Tobacco Cessation:Counseling Given: Not Answered Comments Unknown Sex and Gender Information Value Date Recorded Sex Assigned at Not on file Legal Sex Female 10:36 AM CDT Gender Identity Not on file Sexual Orientation Not on file Last Filed Vital Signs Vital Sign Reading Time Taken Comments Blood Pressure 128/64 04/04/2025 3:44 PM CDT Pulse 68 04/04/2025 3:00 PM CDT Temperature - - Respiratory Rate - - Oxygen Saturation 98% 04/04/2025 3:00 PM CDT Inhaled Oxygen Concentration - - Weight 63.5 kg (140 lb) 04/04/2025 3:44 PM CDT Height 170.2 cm (5' 7 ) 04/04/2025 3:44 PM CDT Body Mass Index 21.93 04/04/2025 3:44 PM CDT Plan of Treatment Upcoming Encounters Date Type Department Care Team (Late st Contact Info) Description 09/29/2025 11:30 AM BAKER PASTRY Office Visit [facility] [address] [place] [address] Melani Waller MD [address] [place] [address] Health Maintenance Due Date Last Done Comments DIABETES ANNUAL FOOT EXAM 1967 DIABETES MICROALBUMIN ANNUAL SCREEN 1967 LDL CHOLESTEROL ANNUAL 1967 DTAP/TDAP/TD VACCINES (1 - Tdap) 1968 PNEUMOCOCCAL VACCINE 50+ YEA RS (1 of 2 - PCV) 1968 COLORECTAL SCREENING 1994 Colorectal Cancer Screening 1994 FIT-DNA Q 3 years 1994 FIT/FOBT Q 1 year 1994 Flex Sig/CT Colonography Q 5 years 1994 ZOSTER VACCINE (1 of 2) 1999 OSTEOPOROSIS SCREENING 2014 DIABETES ANNUAL RETINAL EXAM 12/23/2021 12/23/2020 RSV VACCINE (60+ or ) (1 - 1-dose 75+ series) 2024 INFLUENZA VACCINE (#1) 2025 03/12/2025 COVID-19 Vaccine (2024-2 6 season) 2025 07/26/2022, 04/06/2022, 08/17/2021, Additional history exists DIABETES HBA1C Q 6 MONTHS 07/05/20252024, 12/23/2024, 02/03/2023, Additional history exists Insurance MEDIC[facility] PART A [facility]
--- OUTSIDE RECORDS SUMMARY | 2025-08-18 06:19 | XMS_ITS | Patient Health Record ---
Author Organization [facility] Address [address] [place] [address] Care Team Providers Care Furnace Repairer Helper Name Role Phone Celso Frey Primary Care Provider Allergies Allergen (clinical drug ingredient) Drug/Non Drug Allergy documented on EMR Reaction Allergy Type Onset Date Status ampicillin Ampicillin Unknown Drug Allergy Activ e Tetanus Immune Globulin Unknown Drug Allergy Active amoxicillin Amoxicillin Unknown Drug Allergy Act gloria Penicillin Unknown Drug Allergy Active promethazine Promethazine Unknown Drug Allergy A ctive Results Component Value Reference Range Flag Notes Thoracic Spine AP/Lat-99618 Reviewed date:04/28/2025 02:14:42 PM Interpretation: Performing Lab: Notes/Report: [email or web address]=[id number]&org=iSite Hemoglobin A1c 59042 Reviewed date:01/02/2025 02:18:15 PM Interpretation: Performing Lab: Notes/Report: Diagnosis Description: Hyperglycemia, unspecified Hgb A1c 12.2 3.8-6.4 % HI Interpretation Of Hgb A1c: 4.5-6.2 % nondiabetics. >7.0 % diabetics. EAG 303 NA Estimated Aver age Glucose(EAG). C-Peptide 72364 Reviewed date:01/02/2025 02:18:21 PM Interpretation: Performing Lab: Notes/Report: Diagnosis Description: Hyperglycemia, unspecified C-peptide 3.4 0.5-3.3 ng/mL HI INTERPRETIVE INFORMATION: Serum, C-Peptide Reference Interval applies to fasting specimens. To convert to nmol/L, multiply by 0.33 Performed By: [employer] [address] [place] [address] Helicopter Crew Chief: Ajay Hampton MD, PhD CLIA Number: [id number] Foot AP/Lat Tkza-[id number] Reviewed date:01/02/2025 12:03:22 PM Interpretation: Performing Lab: Notes/Report: See Below For Report Foot AP/Lat Left Read See Below For Report UA Dip / Urinalysis, Routine , Manual - 50410 Reviewed date:04/30/2025 12:05:02 PM Interpretation: Performing Lab: Notes/Report: Color Yellow Clarity Clear Glucose 2000 Bilirubin - Ketones - Specific [place] 1.010 Blood +++Large pH 6.5 Protein + 30 Urobilinogen,Semi-Qn 0.2 Nitrite, Urine - Leukocytes ++ Moderate Microalbumin (U) Random 8204 3 Reviewed date:05/20/2025 11:02:49 AM Interpretation: Performing Lab: Notes/Report: Diagnosis Description: Proteinuria, unspecified Ur Microalbumin <3.0 .0-30.0 MG/L Ur Creat 58.0 29.0-226.0 Mal/Crea/Ratio <5.2 .0-30.0 mg Alb/g Cr UA Dip / Urinalysis, Routine , Manual - 48362 Reviewed date:06/16/2025 04:53:16 PM Interpretation: Performing Lab: Notes/Report: Color Yellow Clarity Foggy Glucose - Bilirubin + Ketones - Specific [place] 1.020 Blood + Small pH 5.0 Protein 30 + Urobilinogen,Semi-Qn 0.2 Nitrite, Urine + Leukocytes ++ Moderate Foot AP/Lat Left-42782 Reviewed date:01/02/2025 12:03:36 PM Interpretation: Performing Lab: Notes/Report: [email or web address]=[id number]&org=iSite Vitamin B12 (B) 85735 Reviewed date:01/02/2025 12:04:04 PM Interpretation: Performing Lab: Notes/Report: Diagnosis Description: Neuralgia and neuritis, unspecified VljmonqL37 226 211-911 pg/mL Thyroid Stimulating Hormone (TSH) 99153 Reviewed date:01/02/2025 12:03:48 PM Interpretation: Performing Lab: Notes/Report: Diagnosis Description: Neuralgia and neuritis, unspecified TSH 1.585 .358-3.740 MlU/ML Comprehensive Metabolic Pane l (CMP) 00946 Reviewed date:01/02/2025 12:03:57 PM Interpretation: Performing Lab: Notes/Report: Diagnosis Description: Neuralgia and neuritis, unspecified Glucose Serum 407 71-110 MG/DL CRIT Called to doctor's office, left message no call back services available, Kirstin RISK ASSESSMENT CONSULTANT 12/19/2024 19:31:19. Testing performed at [facility], [address] [place] [address] [place] [address]. CLIA ID#: [id number] BUN 11 7-21 MG/DL Creat .61 .51-1.17 MG/DL H-grhbar-u-benzoquinon e imine (NAPQI) is a metabolite of acetaminophen, NAPQI concentrations of apparoximately 10 mg/L correlation to toxic levels of acetaminophen demonstrates a greater than or equil to 10% change in results. NAPQI concentrations greater than this may lead to falsely depressed results for patient samples. Use of this assay is not recommended for patients undergoing treatment with phenindione, due to the potential for falsely depressed results. GFR 93.0 NA Calculation pe rformed from GFR calculator provided by the [employer]. Glomerular Filtration rate(GRF) is the best overall index of kidney function. Normal GFR varies according to age,sex, body size, and declines with age. The National [employer] recommends using the CKD-EPI Creatinine Equation(2020) to estimate GFR. BUN/Creat Ratio 18.0 12.0-20.0 % Total Protein 6.5 5.8-8.0 G/DL Albumin 4.3 3.2-4.8 G/DL Globulin 2.2 2.3-3.5 G/DL LOW Alb/Glob 2.0 0.8-2.2 Calcium 9.6 8.7-10.4 MG/DL Sodium 134 136-145 MMOL/L LOW Potassium 4.4 3.5-5.1 MMOL/L Chloride 99 98-107 MMOL/L CO2 28.0 20.0-31.0 MMOL/L Anion Gap 11 5-15 Alk Phos 115 46-116 Bili Total .8 .3-1.2 MG/DL Use of this assay is not recommended for patients undergoing treatment with eltrombopag due to the potential for falsely elevated results. AST/SGOT 15 15-37 UNIT/L ALT/SGPT 13 12-78 UNIT/L Osmo Serum,Calculated 294 280-300 MOSM/KG CBC w\ Auto Diff 49877 Reviewed date:01/02/2025 12:03:51 PM Interpretation: Performing Lab: Notes/Report: Diagnosis Description: Neuralgia and neuritis, unspecified WBC 4.4 4.5-11.0 X10'3 LOW RBC 4.85 4.00-5.20 X10'6 Hgb 14.6 12.0-16.0 G/DL Hct 44.6 36.0-46.0 % MCV 92.0 80.0-100.0 FL MCH 30.1 27.0-31.0 PG MCHC 32.7 31.0-37.0 G/DL Platelet 174 150-400 X10'3 RDW-SD 46.5 35.0-49.0 FL RDW-CV 13.7 12.2-15.6 % MPV 11.9 9.2-12.0 FL Neutro Auto% 71.9 40.0-70.0 % HI Lymph Auto% 17.2 22.0-44.0 % LOW [place] Auto% 7.7 3.0-7.0 % HI Eos Auto% 1.8 2.0-4.0 % LOW Baso Auto% 0.7 0.0-1.0 % Imm Gran% .7 .0-.4 % HI Neutro Abs 3.17 .80-7.70 Absolute Neutrophil Count 3170 NA Lymph Abs .76 .10-4.10 [place] Abs .34 .20-1.00 Eos Abs .08 .00-.40 Baso Abs .03 .00-.20 Imm Gran Abs .03 .00-.10 NRBC# .00 .00-.20 X10'3 NRBC% .00 .00-.20 /100 intact WBC's IH Thoracic Spine AP/Lat - 7 2069 Reviewed date:04/28/2025 02:14:42 PM Interpretation: Performing Lab: Notes/Report: See Below For Report Thoracic Spine AP/Lat Reason For Referral No Information Medications Medication SIG (Take, Route, Frequency, Duration) Notes Start Date End Date Status Stool Softener 100 MG Capsule 1 capsule as needed Orally Once a day Active Omeprazole 20 MG Capsule Delayed Release 1 capsule 30 minutes before morning meal Orally Once a day Not-Taking Pregabalin 100 MG Capsule 1 capsule Orally BID; Duration: 30 days 07/31/2025 10/22/2025 Active guaiFENesin-Codeine 200-10 MG/5ML Liquid 10 mL as needed Orally every 4 hrs 08/21/2023 Not-Taking predniSONE 20 mg Tablet take 2 tablets B Y MOUTH FOR 3 DAYS, THEN 1 tablet FOR 3 DAYS, THEN 1/2 tablet FOR 3 DAYS; Duration: 9 Not-Taking Vitamin C 1000 MG Tablet 1 tablet Orally Once a day Not-Taking Tresiba FlexTouch 200 UNIT/ML Solution Pen-injector 25 ml Subcutaneous daily; Duration: 30 days 12/30/2024 Active Acetaminophen 500 MG Capsule 1 capsule as needed Orally every 6 hrs Active Immunizations Vaccine Route Administration Date Status Comme nts Flucelvax Trivalent, Syringe 0.5 mL, PF Unknown 03/12/2025 Administered Social History Tobacco Use: Social History Observation Description Date Details (start date - stop date) Former Smoker NA - NA Social History Depression Screening Social Info Question Answer Notes depression screening findings Findings Negative (0 -4) 12/23/24 PHQ-9 Little interest or p baldo in doing things Not at all Feeling down, depressed, or hopeless Not at all Trouble falling or staying asleep, or sleeping t oo much Not at all Feeling tired or having little energy Not at all Poor appetite or overeating Not at all Feeling bad about yourself, or that you are a failure, or have let yourself or your family down Not at all Trouble concentrating on thi ngs, such as reading the newspaper or watching television Not at all Moving or speaking so slowly that other people could have noticed. Or the opposite ? being so fidgety or restless that you have been moving around a lot more than usual Not at all Thoughts that you would be b tiffanie off , or of hurting yourself in some way Not at all Total Score 0 Drugs/Alcohol: Social Info Question Answer Notes Alcohol Screen (Audit-C) Did you have a drink containing alcohol in the past year? No Points 0 Interpretation Negative Drugs Have you used drugs other than those for medical reasons in the past 12 months? No Tobacco Use: Social Info Question Answer Notes Tobacco Control (Standard) Tobacco use: Former smoker How long has it been since you last smoked? 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) Acute idiopathic gout of left foot (M10.072) Active confirmed Problem Acute bronchospasm (01339766580257) Cough due to bronchospasm (J98.01) Active confirmed Problem Sarcoidosis (19471055) Sarcoidosis (D86.9) Active confirmed Problem Neuropathic pain (720182717) Neuropathic pain (M79.2) Active confirmed Problem Injury of left foot (0274674979968728 8) Injury of left foot, initial encounter (S99.922A) Active confirmed Problem Pain in thoracic spine (511142157) Acute bilateral thoracic back pain (M54.6) Active confirmed Problem Serum vitamin B12 low (625227817) Low vitamin B12 level (R79.89) Active confirmed Problem Diabetes mellitus without complication (012133375) 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89 ; VIN (latent autoimmune diabetes of adulthood) E13.9 and Depression screen Z13.31 [facility] [address] [place] [phone] 12/23/2024 Celso Frey Sarcoidosis D86.9 ; Hyperglycemia R73.9 ; Aggressive ex-smoker Z87.891 and Depression screen Z13.31 [facility] [address] [place] [phone] 12/19/2024 Celso Frey Neuropathic pain M79.2 and Injury of left foot, initial encounter S99.922A [facility] [address] [place] [phone] 05/05/2025 Celso Frey Low vitamin B12 leve l R79.89 ; Albuminuria R80.9 and VIN (latent autoimmune diabetes of adulthood) E13.9 [facility] [address] [place] [phone] 04/07/2025 Celso Frey Acute bilateral thoracic back pain M54.6 and VIN (latent autoimmune diabetes of adulthood) E13.9 [facility] [address] [place] [phone] 03/10/2025 Celso Frey VIN (latent autoimmune diabetes of adulthood) E13.9 ; Sarcoidosis D86.9 ; Low vitamin B12 level R79.89 and Depression screen Z13.31 [facility] [address] [place] [phone] 04/09/2025 Celso Frey Low vitamin B12 leve l R79.89 [facility] [address] [place] [phone] 04/30/2025 Celso Frey UTI symptoms R39.9 [facility] [address] [place] [phone] 03/24/2025 Celso Frey VIN (latent autoimmune diabetes of adulthood) E13.9 ; Neuropathic pain M79.2 ; Acute bilateral thoracic back pain M54.6 and Depression screen Z13.31 [facility] [address] [place] [phone] 01/27/2025 Celso Frey Low vitamin B12 leve l R79.89 and VIN (latent autoimmune diabetes of adulthood) E13.9 [facility] [address] [place] [address] 07/24/2025 Celso Frey Low vitamin B12 leve l R79.89 [facility] [address] [address] 06/16/2025 Celso Frey UTI symptoms R39.9 and Low vitamin B12 level R79.89 [facility] [address] [place] [address] 04/30/2025 Celso Frey [facility] [address] [phone] 04/09/2025 Celso Frey [facility] [address] [place] [phone] 08/05/2025 Celso Frey Acute bilateral thoracic back pain M54.6 [facility] [address] [place] [phone] 07/24/2025 Celso Frey Acute bilateral thoracic back pain M54.6 [facility] [address] [place] [phone] 06/16/2025 Celso Frey Assessments Encounter Date Diagnosis (ICD Code) Assessment Notes Treatment Notes Treatment Clinical Notes Section Notes 12/19/2024 Neuropathic pain (ICD-10 - M79.2) 12/19/2024 Injury of left foot, initial encounter (ICD-10 - S99.922A) 12/23/2024 Hyperglycemia (ICD-10 - R73.9) Suspect VIN 12/23/2024 Sarcoidosis (ICD-10 - D86.9) 12/30/2024 Sarcoidosis (ICD-10 - D86.9) 01/27/2025 Low vitamin B12 level (ICD-10 - R79.89) 01/27/2025 VIN (latent autoimmune diabetes of adulthood) (ICD-10 - E13.9) 03/10/2025 VIN (latent autoimmune diabetes of adulthood) (ICD-10 - E13.9) She is doing really well. 03/24/2025 Neuropathic pain (ICD-10 - M79.2) 03/24/2025 VIN (latent autoimmune diabetes of adulthood) (ICD-10 - E13.9) 04/07/2025 Acute bilateral thoracic back pain (ICD-10 - M54.6) 04/09/2025 Low vitamin B12 level (ICD-10 - R79.89) 04/30/2025 UTI symptoms (ICD-10 - R39.9) 05/05/2025 Albuminuria (ICD-10 - R80.9) 05/05/2025 Low vitamin B12 level (ICD-10 - R79.89) 06/16/2025 UTI symptoms (ICD-10 - R39.9) 06/16/2025 Low vitamin B12 level (ICD-10 - R79.89) 07/24/2025 Low vitamin B12 level (ICD-10 - R79.89) 07/24/2025 Acute bilateral thoracic back pain (ICD-10 - M54.6) 08/05/2025 Acute bilateral thoracic back pain (ICD-10 - M54.6) 03/24/2025 Acute bilateral thoracic back pain (ICD-10 - M54.6) 05/05/2025 VIN (latent autoimmune diabetes of adulthood) (ICD-10 - E13.9) 04/07/2025 VIN (latent autoimmune diabetes of adulthood) (ICD-10 - E13.9) 03/10/2025 Sarcoidosis (ICD-10 - D86.9) 12/30/2024 Low vitamin B12 level (ICD-10 - R79.89) 12/23/2024 Aggressive ex-smoker (ICD-10 - Z87.891) 12/30/2024 Neuropathic pain (ICD-10 - M79.2) 12/23/2024 Depression screen (ICD-10 - Z13.31) 03/10/2025 Low vitamin B12 level (ICD-10 - R79.89) Doing well. 12/30/2024 VIN (latent autoimmune diabetes of adulthood) (ICD-10 - E13.9) 03/24/2025 Depression screen (ICD-10 - Z13.31) 03/10/2025 Depression screen (ICD-10 - Z13.31) 12/30/2024 Depression screen (ICD-10 - Z13.31) 12/19/2024 Other Venipuncture performed by Evette Guillory. Left arm/hand. One attempt. Pt tolerated well, bleeding controlled with light dressing. Lab sent to [facility] via [facility]. Plan Of Treatment Next Appt Details Provider Name:Celso Frey, 2025 08:00:00 AM, [address] [address], [place], [address], Insurance Providers Payer Name Payer Address Payer Phone Subscriber Number Group Number Insured Name Patient Relationship to Insured Coverage Start Date Coverage End Date [place] Medicare [address] [place] [phone] [id number] SKYLAR TOMPKINS Self - patient is the insured [place] [address] [place] [address] [id number] SKYLAR TOMPKINS Self - patient is the insured Medications Administered Medication Instructions Date of Administration Dosage Notes Cyanocobalamin 12/30/2024 1 mg Cyanocobalamin 05/05/2025 1 mg Cyanocobalamin 01/27/2025 Cyanocobalamin 03/10/2025 Cyanocobalamin 04/09/2025 Cyanocobalamin 06/16/2025 Cyanocobalamin 07/24/2025 dexAMETHasone 08/21/2023 10 mg Rocephin 08/21/2023 1 g Medical (General) History Medical History History ICD Code Covid 02/03/23 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
--- NOTE | 2025-08-18 06:20 | CTR_ITS ---
PROCEDURE INFORMATION: Exam: CT Head Without Contrast Exam date and time: 08/18/2025 6:28 AM Age: 74 years old Clinical indication: Stroke-like symptoms; Other: Stroke symptoms; Additional info: Symptoms of acute stroke TECHNIQUE: Imaging protocol: Computed tomography of the head without contrast. Radiation optimization: All CT scans at this facility use at least one of these dose optimization techniques: automated exposure control; mA and/or kV adjustment per patient size (includes targeted exams where dose is matched to clinical indication); or iterative reconstruction. Other technique: STROKE PROTOCOL was implemented. COMPARISON: CT head wo con* [id number] 05/28/2020 7:34 AM RADIATION DOSE METRICS: Total DLP (mGy-cm): 1172.71 FINDINGS: Brain: There is mild cerebral atrophy. There is mild diffuse heterogeneity of the white matter attenuation, consistent with chronic white matter ischemic changes. Negative for acute intracranial hemorrhage. Negative for mass effect on the brain. Negative for midline shift in the brain. Walls matter and white matter interfaces are unremarkable. Cerebral ventricles: No ventriculomegaly. Paranasal sinuses: Visualized sinuses are unremarkable. No fluid levels. Mastoid air cells: Visualized mastoid air cells are well aerated. Bones: Unremarkable. No acute fracture. Soft tissues: Unremarkable. CT/CT head thrombolytic [id number] IMPRESSION: Negative for acute intracranial pathology. ASSESSMENT: ASPECTS ([place] Stroke Program Early CT Score) is 10.
--- NOTE | 2025-08-18 06:20 | ECG_ITS ---
[facility] 2025[facility]18 Pat Name: Cait Chavira Department: Room: Gender: Female Blockmason: : 1950 Requested By: Lion Walker Order Number: [id number] Severino MD: Guillermo Bowen M.D. Measurements Intervals [place] Rate: 77 P: 63 WY: 158 QRS: 0 QRSD: 89 T: 31 QT: 399 QTc: 453 Interpretive Statements SINUS RHYTHM POSSIBLE LEFT ATRIAL ENLARGEMENT [-0.1mV P-WAVE IN V1/V2] POSSIBLE RIGHT VENTRICULAR CONDUCTION DELAY [RSR (QR) IN V1/V2] NONSPECIFIC T-WAVE ABNORMALITY Compared to ECG 05/28/2020 07:32:06 Sinus arrhythmia no longer present Possible ischemia no longer present T-wave abnormality still present Electronically Signed On 08-18-2025 18:12:41 TABLE GAMES SHIFT MANAGER by Guillermo Bowen M.D. [email or web address]
--- NOTE | 2025-08-18 06:20 | W.ED.NEUROSD ---
HPI - Neuro Symptoms/Deficit General: Chief Complaint: Dizziness Stated Complaint: n/v/d History of Present Illness: 74-year-old female presents emergency room with complaint of dizziness and nausea. Her last known well was 8 PM last night she got up around 4 AM. When she got up around 4 AM she had severe vertigo with nausea and vomiting was unable to walk. She called the EMS she was given Zofran and route. While laying in bed with no movement she still has vertigo and nausea. Associated symptoms: Deny chest pain Related Data Home Medications ?Medication ?Instructions ?Recorded ?Confirmed acetaminophen 325 mg tablet 500 mg PO QID PRN Pain 02/06/20 08/18/25 (Tylenol) insulin degludec 200 unit/mL (3 24 unit SUBCUT DAILY 01/22/25 08/18/25 mL) subcutaneous pen (Tresiba FlexTouch U-200 insulin) pen needle, diabetic 31 gauge x #1,200 ea 01/22/25 08/18/25/16 (TRUEplus Pen Needle) pregabalin 100 mg capsule 100 mg PO BID 08/18/25 08/18/25 Previous Rx's ?Medication ?Instructions ?[facility] 01/22/25 Allergies Allergy/AdvReac Type Severity Reaction Status Date / Time amoxicillin Allergy ALGY-Hives Verified 03/19/25 15:05 ampicillin Allergy ALGY-Hives Verified 03/19/25 15:05 Penicillins Allergy ALGY-Hives Verified 03/19/25 15:05 Tetanus Vaccines and Toxoid Allergy ALGY-Hives Verified 03/19/25 15:05 Review of Systems Const: Denies: fever(s) or chills Card: Denies: chest pain Resp: Denies: dyspnea GI: Denies: abdominal pain : Denies: dysuria, urinary frequency or urinary urgency Musc: Denies: neck pain or back pain Skin/Breast: Denies: rash PFSH ED PFSH: Medical History Diabetes Traumatic partial tear of right biceps tendon Surgical History S/P cholecystectomy Family History Father Congestive heart failure (CHF) Mother Congestive heart failure (CHF) Family/Other Stroke Other Cancer Social History Smoking and tobacco/nicotine status: former use of tobacco/nicotine Quit status (tobacco/nicotine): has quit using Year quit tobacco: 1992 >0.5 PPD x 6 months Second hand smoke exposure: Yes Alcohol intake: never Substance/Drug Use: never Lives independently: Yes Household members: spouse Marital status: Current occupational status: employed Current occupation: [employer] Current occupational exposures/hazards: Yes Do you think of yourself as: Straight/Heterosexual Current gender identity: Female NIH stroke score NIHSS: Level Of Consciousness - 1a: 0 Level Of Consciousness Questions - 1b: Both Correct Level Of Consciousness Commands - 1c: Both Correct Best Gaze - 2: Normal Visual Alvarez - 3: No Visual Loss Facial Palsy - 4: Normal Motor Arm Right - 5: No Drift Motor Arm Left - 5: No Drift Motor Leg Right - 6: No Drift Motor Leg Left - 6: No Drift Limb Ataxia - 7: Present In Two Limbs Sensory - 8: Normal Best Language - 9: No Aphasia Dysarthia - 10: Normal Extinction And Inattention - 11: 0 Score: Total Score: 2 Physical Exam Const: GENERAL APPEARANCE: cooperative ORIENTATION/CONSCIOUSNESS: Yes awake, Yes oriented to person, Yes oriented to place and Yes oriented to time HENMT: COMMON NORMALS: normocephalic, atraumatic and hearing grossly normal bilaterally HEAD & SCALP: normocephalic and atraumatic Eye: OTHER: Rightward nystagmus Resp: COMMON NORMALS: normal respiratory effort, No retractions, No use of accessory muscles and clear to auscultation bilaterally AUSCULTATION: clear to auscultation bilaterally Cardio: COMMON NORMALS: regular rate, regular rhythm and No murmurs present (Cardio) RATE: regular rate RHYTHM: regular rhythm GI: COMMON NORMALS: Soft to palpation and No hepatosplenomegaly present AUSCULTATION: Yes normoactive bowel sounds PALPATION: Yes Soft to palpation, No Tenderness to palpation present (GI), No Guarding due to palpation present (GI) and Yes No hepatosplenomegaly present Extremity: COMMON NORMALS: normal to inspection, capillary refill normal, no clubbing, cyanosis or edema, no calf tenderness and no pedal edema Neuro: SENSORIUM/ORIENTATION: Yes oriented to person, Yes oriented to place and Yes oriented to time Skin: COMMON NORMALS: no rashes or lesions noted GENERAL SKIN EXAM: no rashes or lesions noted Course Vital Signs: Vital signs: Vital Signs Temperature 97.5 F L 08/18/25 06:15 Pulse Rate 74 08/18/25 09:43 Respiratory Rate 17 08/18/25 06:47 Blood Pressure 116/59 08/18/25 09:43 Pulse Oximetry 98 08/18/25 09:43 Oxygen Delivery Me thod Room Air 08/18/25 08:38 MDM - Neuro Symptoms/Deficit Medical Decision Making Patient presents well outside any window for prophy thrombolytics. Her NIH score is 2. She is unable to stand at the bedside does have a little bit of ataxia with the right arm and leg compared to the left. CT head negative CTA head neck is also negative. Patient given aspirin and Ativan for persistent vertiginous symptoms nausea and vomiting will admit patient for posterior CVA discussed with hospitalist orders written. Have also discussed Dr. Yancey who is on-call she will see the patient Medical Records I reviewed the patient's medical records. Lab Data I reviewed the patient's lab results. 08/18/25 06:54 08/18/25 06:[address] 08/18/25 06:20 IMPRESSION: Negative for acute intracranial pathology. ASSESSMENT: ASPECTS (Melissa Stroke Program Early CT Score) is 10. ADDENDUM: 08/18/25645 Findings were discussed with LION BAGLEY at 08/18/2025 6:44 AM PHD INTERNSH[employer]. Head/Neck CTA 08/18/25 06:25 IMPRESSION: Bilateral internal carotid artery stenosis. Otherwise patent [id number]. IMPRESSION: No stenosis or occlusion. REFERENCES: NASCET CRITERIA. The degree of stenosis in the cervical segment of the internal carotid artery is based on NASCET criteria. Normal is no stenosis. Mild is less than 50% stenosis. Moderate is 50-69% stenosis. Severe is 70% to 99% stenosis. Total occlusion is no detectable patent lumen. ADDENDUM: 08/18/25 0715 THIS REPORT CONTAINS FINDINGS THAT MAY BE CRITICAL TO PATIENT CARE. The findings were verbally communicated via telephone conference with LION BAGLEY at 7:13 AM PHD INTERNSHIP on 08/18/2025. The findings were acknowledged and understood. Laboratory Results WBC 6.38 10^3/uL (3.29-11.43) 08/18/25 06:54 RBC 4.36 10^6/uL (3.85-5.65) 08/18/25 06:54 Hgb 13.10 g/dL (11.27-16.99) 08/18/25 06:54 Hct 38.6 % (36-47) 08/18/25 06:54 MCV 88.5 fl (85-98) 08/18/25 06:54 MCH 30.0 pg (27-33) 08/18/25 06:54 MCHC 33.9 g/dL (30-55) 08/18/25 06:54 RDW 13.5 % (12.1-15.1) 08/18/25 06:54 Plt Count 141 10^3/cmm (157-399) L 08/18/25 06:54 MPV 11.4 fL (7.4-10.4) H 08/18/25 06:54 Neut % (Auto) 88.0 % 08/18/25 06:54 Lymph % (Auto) 6.3 % 08/18/25 06:54 Collier % (Auto) 4.4 % 08/18/25 06:54 Eos % (Auto) 0.3 % 08/18/25 06:54 Baso % (Auto) 0.5 % 08/18/25 06:54 Neut # (Auto) 5.62 10^3/uL (1.8-7.7) 08/18/25 06:54 Lymph # (Auto) 0.4 10^3/uL (0.8-4.8) L 08/18/25 06:54 Collier # (Auto) 0.3 10^3/uL (0.2-0.9) 08/18/25 06:54 Eos # (Auto) 0.0 10^3/uL (0.0-0.8) 08/18/25 06:54 Baso # (Auto) 0.0 10^3/uL (0.0-0.1) 08/18/25 06:54 Nucleated RBC % (auto) 0 % 08/18/25 06:54 Nucleated RBCs # 0.0 /100WBC 08/18/25 06:54 PT 13.00 SECONDS (12.1-14.9) 08/18/25 06:54 INR 0.92 (0.8-1.2) 08/18/25 06:54 APTT 26.2 SECONDS (23.9-36.7) 08/18/25 06:54 Sodium 135 mmol/L (136-145) L 08/18/25 06:54 Potassium 4.2 mmol/L (3.5-5.1) 08/18/25 06:54 Chloride 100 mmol/L (98-107) 08/18/25 06:54 Carbon Dioxide 24 mmol/L (22-29) 08/18/25 06:54 Anion Gap 15.2 (5-19) 08/18/25 06:54 BUN 8 mg/dL (8-23) 08/18/25 06:54 Creatinine 0.5 mg/dL (0.5-0.9) 08/18/25 06:54 GFR Calculation Not Reportable 08/18/25 06:54 Glucose 300 mg/dL (65-115) H 08/18/25 06:54 POC Glucose 317 mg/dL (70-110) H 08/18/25 06:21 Calculated Osmolality 290 mOsm/kg (285-295) 08/18/25 06:54 Calcium 8.5 mg/dL (8.5-10.5) 08/18/25 06:54 Magnesium 1.8 mg/dL (1.7-2.3) 08/18/25 06:54 Total Bilirubin 0.5 mg/dL (0.15-1.2) 08/18/25 06:54 AST 12 U/L (0-32) 08/18/25 06:54 ALT 7 U/L (0-33) 08/18/25 06:54 Alkaline Phosphatase 82 U/L (35-105) 08/18/25 06:54 Total Protein 5.9 g/dL (6.6-8.7) L 08/18/25 06:54 Albumin 3.6 g/dL (3.5-5.2) 08/18/25 06:54 Globulin 2.3 g/dL (1.3-4.6) 08/18/25 06:54 Vitamin B12 314 pg/mL (232-1245) 08/18/25 06:54 Folate 8.4 ng/mL (4.8-37.3) 08/18/25 06:54 TSH 1.89 uIU/mL (0.27-4.20) 08/18/25 06:54 All radiology interpretation(s) finalized by discharge Discharge Plan Discharge Patient Disposition: Admitted As Inpatient Admit Provider: Markus Herring Clinical Impression: Posterior circulation stroke Condition: Stable Coding Level of Care Code ED Pit Shoveler for Camron Bundy
--- NOTE | 2025-08-18 06:25 | CTR_ITS ---
PROCEDURE INFORMATION: Exam: CTA Head With Contrast, Arteriography Exam date and time: 08/18/2025 6:31 AM Age: 74 years old Clinical indication: Stroke-like symptoms; Dizziness/giddiness and vomiting; Additional info: Posterior CVA TECHNIQUE: Imaging protocol: Computed tomographic angiography of the head with contrast. Exam focused on the arteries. 3D rendering (Not supervised by radiologist): MIP and/or 3D reconstructed images were created by the technologist. Radiation optimization: All CT scans at this facility use at least one of these dose optimization techniques: automated exposure control; mA and/or kV adjustment per patient size (includes targeted exams where dose is matched to clinical indication); or iterative reconstruction. Contrast material: OMNI 350; Contrast volume: 100 ml; Contrast route: INTRAVENOUS (IV); COMPARISON: CT head thrombolytic [id number] 08/18/2025 6:28 AM RADIATION DOSE METRICS: Total DLP (mGy-cm): 422.51 FINDINGS: ANTERIOR CIRCULATION: Right internal carotid artery: There is [id number] stenosis of the supraclinoid segment of the right internal carotid artery. secondary to soft and calcified plaque. Right middle cerebral artery: No occlusion or significant stenosis. No aneurysm. Right anterior cerebral artery: No occlusion or significant stenosis. No aneurysm. Left internal carotid artery: There is [id number] stenosis of the supraclinoid segment of the left internal carotid artery. secondary to soft and calcified plaque. Left middle cerebral artery: No occlusion or significant stenosis. No aneurysm. Left anterior cerebral artery: No occlusion or significant stenosis. No aneurysm. POSTERIOR CIRCULATION: Right vertebral artery: No occlusion or significant stenosis. No aneurysm. Left vertebral artery: No occlusion or significant stenosis. No aneurysm. Basilar artery: No occlusion or significant stenosis. No aneurysm. Right posterior cerebral artery: No occlusion or significant stenosis. No aneurysm. Left posterior cerebral artery: No occlusion or significant stenosis. No aneurysm. Brain: No definite mass, mass effect, or midline shift. Cerebral ventricles: No ventriculomegaly. Bones/joints: Unremarkable. No acute fracture. Soft tissues: Unremarkable. PROCEDURE INFORMATION: Exam: CTA Neck With Contrast Exam date and time: 08/18/2025 6:31 AM Age: 74 years old Clinical indication: Stroke-like symptoms; Dizziness/giddiness and vomiting; Additional info: Posterior CVA TECHNIQUE: Imaging protocol: Computed tomographic angiography of the neck with contrast. Exam focused on the cervical segments of the vasculature. 3D rendering (Not supervised by radiologist): MIP and/or 3D reconstructed images were created by the technologist. Radiation optimization: All CT scans at this facility use at least one of these dose optimization techniques: automated exposure control; mA and/or kV adjustment per patient size (includes targeted exams where dose is matched to clinical indication); or iterative reconstruction. Contrast material: OMNI 350; Contrast volume: 100 ml; Contrast route: INTRAVENOUS (IV); COMPARISON: CT head thrombolytic [id number] 08/18/2025 6:28 AM RADIATION DOSE METRICS: Total DLP (mGy-cm): 422.51 FINDINGS: Right common carotid artery: No stenosis. No dissection or occlusion. Right internal carotid artery: No stenosis of the extracranial segment. No dissection or occlusion. There is mild plaque at the bulb. Right external carotid artery: No occlusion or stenosis of the origin. Left common carotid artery: No stenosis. No dissection or occlusion. Left internal carotid artery: No stenosis of the extracranial segment. No dissection or occlusion. There is mild plaque in the bulb. Left external carotid artery: No occlusion or stenosis of the origin. Right vertebral artery: No stenosis. No dissection or occlusion. Left vertebral artery: No stenosis. No dissection or occlusion. Soft tissues: Normal. No significant soft tissue swelling. Bones/joints: No acute fracture. Lungs: Similar-appearing bilateral pulmonary nodules are identified. CT/CT angio headneck* [id number] IMPRESSION: Bilateral internal carotid artery stenosis. Otherwise patent [id number]. IMPRESSION: No stenosis or occlusion. REFERENCES: NASCET CRITERIA. The degree of stenosis in the cervical segment of the internal carotid artery is based on NASCET criteria. Normal is no stenosis. Mild is less than 50% stenosis. Moderate is 50-69% stenosis. Severe is 70% to 99% stenosis. Total occlusion is no detectable patent lumen.
[2025-08-18] MEDS: iohexol 350 mg/mL 500 mL Btl (per mL) IV (06:39)
[2025-08-18 07:14] LABS: Hematocrit 38.6 % (36-47); Hemoglobin 13.10 g/dL (11.27-16.99); Mean Corpuscular HGB Conc 33.9 g/dL (30-55); Mean Corpuscular Hemoglobin 30.0 pg (27-33); Mean Corpuscular Volume 88.5 fl (85-98); Nucleated Red Blood Cells % 0 %; Platelet Count 141 10^3/cmm (157-399); Red Blood Count 4.36 10^6/uL (3.85-5.65); White Blood Count 6.38 10^3/uL (3.29-11.43)
[2025-08-18 07:27] LABS: INR 0.92 (0.8-1.2); Prothrombin Time 13.00 SECONDS (12.1-14.9)
[2025-08-18 07:28] LABS: Partial Thromboplastin Time 26.2 SECONDS (23.9-36.7)
[2025-08-18 07:30] LABS: Alanine Aminotransferase 7 U/L (0-33); Albumin Level 3.6 g/dL (3.5-5.2); Alkaline Phosphatase 82 U/L (35-105); Anion Gap 15.2 (5-19); Aspartate Amino Transferase 12 U/L (0-32); Blood Urea Nitrogen 8 mg/dL (8-23); Calcium 8.5 mg/dL (8.5-10.5); Carbon Dioxide 24 mmol/L (22-29); Chloride 100 mmol/L (98-107); Creatinine Clr Calc Pharmacy 64.2734; Globulin 2.3 g/dL (1.3-4.6); Glucose 300 mg/dL (65-115); Osmolality Calculated 290 mOsm/kg (285-295); Potassium 4.2 mmol/L (3.5-5.1); Sodium 135 mmol/L (136-145); Total Protein 5.9 g/dL (6.6-8.7)
[2025-08-18] MEDS: ondansetron 2 mg/ML SDV 2 mL 4 MG IVP (07:33)
[2025-08-18] MEDS: LORazepam 2 mg/mL INJ 1 mL 1 MG IVP (07:39)
--- NOTE | 2025-08-18 09:02 | MR_ITS ---
WS: [id number] MRI HEAD WITH CONTRAST TECHNIQUE: Sagittal T1, T2 axial, T2 axial FLAIR, axial susceptibility weighted imaging, axial diffusion weighted images, and coronal T2 images were obtained. Pre and post-T1 axial and post T1 coronal images. ADC and FSPGR images. CLINICAL INFORMATION: cva rule out with nystagmus and ataxia FINDINGS: No evidence of restricted diffusion to suggest acute ischemia. Mild small vessel changes. Moderate parenchymal volume loss. No hemosiderin on the susceptibly weighted images. Normal posterior fossa. Normal vascular flow voids at the skull base. No extra-axial fluid collections. Mild mucosal thickening in the paranasal sinuses. Mastoid air cells are well aerated. Normal posterior nasopharynx. No abnormal gadolinium enhancement. Normal dural venous sinuses. MR/MR head wo/w con [id number] IMPRESSION: 1. No evidence of restricted diffusion to suggest acute ischemia. 2. Mild small vessel changes with moderate parenchymal volume loss. 3. No hemosiderin on the susceptibly weighted images. 4. No other acute findings.
--- NOTE | 2025-08-18 09:07 | PM.HP ---
Providers/Chief Complaint Admitting Physician: Markus Herring Primary Care Provider: Keanu Frey MD Chief Complaint: n/v/d History of Present Illness Cait Chavira is a 74 year old female with prior medical history of DM, sarcoidosis, right lung mass, hernia, falls, fractures, and anxiety presenting with complaints of dizziness. 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 She went to bed normal last night, but in the 0400 hour woke to go to the bathroom and experienced dizziness, nausea, and vomiting. Patient alerted her who called 911 and assisted her to a kitchen chair. She was transported to [facility] via ambulance. She reports compliance with diabetic medication regimen. This is her first occurrence of described symptoms. and daughter in law at bedside as primary historians s/t patient neuro status with confusion and dizziness. Patient admitted to Hospitalist Service, medical-surgical status, for further evaluation and treatment. Review of Systems General: Reports: 10 or more systems reviewed and unremarkable except in HPI and below Const: Reports: malaise Card: Reports: lightheadedness GI: Reports: nausea and vomiting Musc: Reports: back pain Neuro: Reports: dizziness, vertigo and confusion Psych: Reports: anxiety Medications/Allergies Home Medications ?Medication ?Instructions ?Recorded ?Confirmed ?Last Taken ?Type acetaminophen 325 mg tablet 500 mg PO QID PRN Pain 02/06/20 08/18/25 02/20/20 History (Tylenol) insulin degludec 200 unit/mL (3 24 unit SUBCUT DAILY 01/22/25 08/18/25 08/17/25 History mL) subcutaneous pen (Tresiba FlexTouch U-200 insulin) pen needle, diabetic 31 gauge x #1,200 ea 01/22/25 08/18/25 Unknown History 12/22 (TRUEplus Pen Needle) ulnar gutter fast form #1 ea 01/22/25 08/18/25 Unknown Rx pregabalin 100 mg capsule 100 mg PO BID 08/18/25 08/18/25 08/17/25 History Allergies Allergy/AdvReac Type Severity Reaction Status Date / Time amoxicillin Allergy ALGY-Hives Verified 03/19/25 15:05 ampicillin Allergy ALGY-Hives Verified 03/19/25 15:05 Penicillins Allergy ALGY-Hives Verified 03/19/25 15:05 Tetanus Vaccines and Toxoid Allergy ALGY-Hives Verified 03/19/25 15:05 PFSH Acute PFSH: Medical History (Updated 08/18/25 @ 10:59 by Lorri Sams, MANAGER TRUST, LIPCOAT SPRAYER) Diabetes Traumatic partial tear of right biceps tendon Surgical History S/P cholecystectomy Family History Father Congestive heart failure (CHF) Mother Congestive heart failure (CHF) Family/Other Stroke Other Cancer Social History Smoking and tobacco/nicotine status: former use of tobacco/nicotine Quit status (tobacco/nicotine): has quit using Year quit tobacco: 1992 >0.5 PPD x 6 months Second hand smoke exposure: Yes Alcohol intake: never Substance/Drug Use: never Lives independently: Yes Household members: spouse Marital status: Current occupational status: employed Current occupation: [employer] Current occupational exposures/hazards: Yes Do you think of yourself as: Straight/Heterosexual Current gender identity: Female Vitals/I&O/Wt Last Vital Signs Temp 97.5 F L 08/18/25 06:15 Pulse 78 08/18/25 08:38 Resp 17 08/18/25 06:47 BP 149/72 08/18/25 06:15 Pulse Ox 92 08/18/25 08:38 O2 Del Method Room Air 08/18/25 08:38 Weight last 48 hrs Weight 71.668 kg Physical Exam Const: GENERAL APPEARANCE: cooperative, comfortable, well developed and ill appearing HENMT: COMMON NORMALS: normocephalic and atraumatic Neck/C-Spine: COMMON NORMALS: full ROM Lymph: LYMPHATIC: no lymphadenopathy noted Chest: COMMONS NORMALS: normal inspection of the chest Resp: COMMON NORMALS: normal respiratory effort Cardio: COMMON NORMALS: no JVD, regular rate and regular rhythm GI: COMMON NORMALS: Normal to inspection, nondistended, normoactive bowel sounds present Neuro: COMMON NORMALS: patient oriented x3 and moves all extremities Psych: COMMON NORMALS: mental status grossly normal Skin: COMMON NORMALS: no rashes or lesions noted Data 08/18/25 06:54 08/18/25 06:54 CT Head: I personally reviewed and interpreted this imaging study as follows: A&P Assessment and plan 1. 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 Vertigo: With Nystagmus HINTS exam Telemetry Fall risk precautions 3. Small airways disease: History of Sarcoidosis Supplemental o2 PRN 4. Type 2 diabetes mellitus with hyperglycemia, without long-term current use of insulin: Glucose > 300, trending > 200 Patient on 24 units around breakfast Hyperglycemia/hypoglycemia protocol initiated A1C pending 5. Nausea and vomiting, unspecified vomiting type: Vomiting episodes this morning Antiemetics ordered Protonix prophylaxis PDMP PDMP Reviewed: Not Reviewed Attestations Medical Necessity Statement*: Requiring observation r/t possible acute stroke. Time Spent in Patient Care: Greater than 35 minutes Coding Level of Care Code Acute Code for [facility] Fwd Diagnoses Posterior circulation stroke I63.50 Vertigo R42 Small airways disease J98.4 Type 2 diabetes mellitus with hyperglycemia, without long-term current use of insulin E11.65 Diabetes mellitus complication status: with hyperglycemia Diabetes mellitus shelter insulin use: without computer terminal operator use Diabetes mellitus type: type 2 Nausea and vomiting, unspecified vomiting type R11.2 Vomiting type: unspecified
[2025-08-18 09:59] LABS: Magnesium 1.8 mg/dL (1.7-2.3); Thyroid Stimulating Hormone 1.89 uIU/mL (0.27-4.20); Vitamin B12 314 pg/mL (232-1245)
[2025-08-18] MEDS: gadobenate dimeglumine 20 mL vial 14 ML IV (10:44)
--- NOTE | 2025-08-18 11:26 | PM.HP ---
Providers/Chief Complaint Admitting Physician: Markus Herring Primary Care Provider: Keanu Frey MD Chief Complaint: n/v/d History of Present Illness Cait Chavira is a 74 year old female Medications/Allergies Home Medications ?Medication ?Instructions ?Recorded ?Confirmed ?Last Taken ?Type acetaminophen 325 mg tablet 500 mg PO QID PRN Pain 02/06/20 08/18/25 02/20/20 History (Tylenol) insulin degludec 200 unit/mL (3 24 unit SUBCUT DAILY 01/22/25 08/18/25 08/17/25 History mL) subcutaneous pen (Tresiba FlexTouch U-200 insulin) pen needle, diabetic 31 gauge x #1,200 ea 01/22/25 08/18/25 Unknown History 12/22 (TRUEplus Pen Needle) ulnar gutter fast form #1 ea 01/22/25 08/18/25 Unknown Rx pregabalin 100 mg capsule 100 mg PO BID 08/18/25 08/18/25 08/17/25 History Allergies Allergy/AdvReac Type Severity Reaction Status Date / Time amoxicillin Allergy ALGY-Hives Verified 03/19/25 15:05 ampicillin Allergy ALGY-Hives Verified 03/19/25 15:05 Penicillins Allergy ALGY-Hives Verified 03/19/25 15:05 Tetanus Vaccines and Toxoid Allergy ALGY-Hives Verified 03/19/25 15:05 PFSH Acute PFSH: Medical History (Updated 08/18/25 @ 10:59 by Lorri Sams, TAX COMMISSIONER, HEALTH INFORMATION PROVIDER) Diabetes Traumatic partial tear of right biceps tendon Surgical History S/P cholecystectomy Family History Father Congestive heart failure (CHF) Mother Congestive heart failure (CHF) Family/Other Stroke Other Cancer Social History Smoking and tobacco/nicotine status: former use of tobacco/nicotine Quit status (tobacco/nicotine): has quit using Year quit tobacco: 1992 >0.5 PPD x 6 months Second hand smoke exposure: Yes Alcohol intake: never Substance/Drug Use: never Lives independently: Yes Household members: spouse Marital status: Current occupational status: employed Current occupation: [employer] Current occupational exposures/hazards: Yes Do you think of yourself as: Straight/Heterosexual Current gender identity: Female Vitals/I&O/Wt Last Vital Signs Temp 97.5 F L 08/18/25 06:15 Pulse 74 08/18/25 09:43 Resp 17 08/18/25 06:47 BP 116/59 08/18/25 09:43 Pulse Ox 98 08/18/25 09:43 O2 Del Method Room Air 08/18/25 08:38 Weight last 48 hrs Weight 71.668 kg Data 08/18/25 06:54 08/18/25 06:54 A&P PDMP PDMP Reviewed: Not Reviewed Coding
[2025-08-18] MEDS: pantoprazole 40 mg SDV IVP (12:20)
[2025-08-18 14:40] LABS: Glucose Urine UA 1+ (Normal); Nitrate Urine Negative (Negative)
[2025-08-18 14:45] LABS: Add Urine Microscopic? YES
[2025-08-18 14:47] LABS: PCP Screen Urine Negative (Negative)
[2025-08-18 14:56] LABS: Specific Gravity, Urine 1.065 (1.005-1.030)
--- NOTE | 2025-08-18 16:38 | P.CONIM_ITS ---
Providers/Reason For Consult 2 Consulting Physician/Specialty*: Dr. Bagley Reason for Consult*: Posterior circulation stroke Attending Physician: Lorri Sams, COOLING MACHINE OPERATOR, ELECTRIC NEEDLE SPECIALIST Primary Care Provider: Keanu Frey MD History of Present Illness History of Present Illness Cait Chavira is a 74-year-old woman who was last known well at 8:00 last night and woke up at 4 in the morning with severe vertigo accompanied by vomiting. She was vomiting repeatedly in the ER. Stroke alert was called at 630 but my cell phone did not ring and I found the message at [address] Bagley. The patient was outside the window for thrombolytic therapy. She had no sign of basilar artery thrombosis or other large vessel occlusion by CT angiogram. Her risk factors for stroke include diabetes and hypertension. The patient indicates that she has not had multiple episodes of vertigo in the past, positional. She felt fine when she went to work last night. She woke up this morning with severe vertigo every time she would move. Her helped her to the bathroom. She felt no better and decided to come to the ER. Physical therapy worked with her earlier today and when she was turned on her left side she experienced vertigo and she vomited. She was feeling somewhat better at the time of my exam. She denies any focal weakness or numbness. She has never had symptoms of stroke in the past. 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 Review of Systems 2 Const: Denies: fever(s), change in weight or fatigue Eyes: Denies: change in vision, blurry vision, blind spots, photophobia, eye discomfort, seeing flashes or other (Glaucoma) ENMT: Denies: odynophagia, hoarseness, change in hearing, tinnitus, sinus pain or other (Loss of taste/smell) Card: Denies: chest pain, palpitations, syncope or other (Calf cramps) Resp: Denies: dyspnea, non-productive cough, wheezing or hemoptysis GI: Reports: nausea and vomiting; Denies: abdominal pain, heartburn, diarrhea, constipation or hematochezia : Denies: urinary frequency or urinary incontinence Musc: Denies: neck pain, muscle weakness or other (Muscle pain) Skin/Breast: Denies: rash, new lesions or breast mass Neuro: Reports: difficulty walking; Denies: headache(s), numbness in extremities, weakness in extremities, sensory changes, Slurred speech present or seizure-like activity Psych: Denies: depression, irritability, memory loss, difficulty concentrating or other (Personality changes) Endo: Denies: polyuria, polydipsia, excessive sweating or change in body appearance Poli/Lymph: Denies: easy bruising, easy bleeding or enlarged lymph nodes Medications/Allergies Home Medications ?Medication ?Instructions ?Recorded ?Confirmed ?Last Taken ?Type acetaminophen 325 mg tablet 500 mg PO QID PRN Pain 08/18/25 02/20/20 History (Tylenol) insulin degludec 200 unit/mL (3 24 unit SUBCUT DAILY 0 01/22/25 08/18/25 08/17/25 History mL) subcutaneous pen (Tresiba FlexTouch U-200 insulin) pen needle, diabetic 31 gauge x #1,200 ea 01/22/2508/02 Unknown History 12/22 (TRUEplus Pen Needle) ulnar gutter fast form #1 ea 01/22/25 08/18/25 Unkn own Rx pregabalin 100 mg capsule 100 mg PO BID 08/18/2508/1808/17/25 History Allergies Allergy/AdvReac Type Severity Reaction Status Date / Time amoxicillin Allergy ALGY-Hives Verified 03/19/25 15:05 ampicillin Allergy ALGY-Hives Verified 03/19/25 15:05 Penicillins Allergy ALGY-Hives Verified 03/19/25 15:05 Tetanus Vaccines and Toxoid Allergy ALGY-Hives Verified 03/19/25 15:05 Current Medications Generic Name Dose Route Start Last Admin Trade Name Freq PRN Reason Stop Dose Admin Clopidogrel Bisulfate 75 mg 08/18/25 10:25 08/18/25 12:21 Clopidogrel 75 Mg Tablet PO 75 mg DAILY BRIANA Administration Sodium Chloride 1,000 mls @ 75 mls/hr 08/18/25 09:00 08/18/25 12:21 Sodium Chloride 0.9% IV Not Given .[id number] BRIANA Sodium Chloride 1,000 mls @ 100 mls/hr 08/18/25 09:41 08/18/25 12:23 Sodium Chloride 0.9% IV 100 mls/hr .Q10H BRIANA Administration Insulin Human Lispro 0 unit 08/18/25 12:00 08/18/25 12:24 Insulin Lispro 100 Unit/1 Ml SUBCUT 10 unit WM&BEDTIME BRIANA Administration Protocol Pantoprazole Sodium 40 mg 08/18/25 09:15 08/18/25 12:20 Pantoprazole 40 Mg Sdv IVP 40 mg DAILY BRIANA Administration PFSH Acute 2 PFSH: Medical History Diabetes Traumatic partial tear of right biceps tendon Surgical History S/P cholecystectomy Family History Father Congestive heart failure (CHF) Mother Congestive heart failure (CHF) Family/Other Stroke Other Cancer Social History Smoking and tobacco/nicotine status: former use of tobacco/nicotine Quit status (tobacco/nicotine): has quit using Year quit tobacco: 1992 >0.5 PPD x 6 months Second hand smoke exposure: Yes Alcohol intake: never Substance/Drug Use: never Lives independently: Yes Household members: spouse Marital status: Current occupational status: employed Current occupation: [employer] Current occupational exposures/hazards: Yes Do you think of yourself as: Straight/Heterosexual Current gender identity: Female Vitals/I&O/Wt Last Vital Signs Temp 97.4 F L 08/18/25 16:00 Pulse 74 08/18/25 16:00 Resp 16 08/18/25 16:00 BP 129/71 08/18/25 16:00 Pulse Ox 99 08/18/25 13:51 O2 Del Method Room Air 08/18/25 14:05 08/18/25 08/18/25 08/18/25 06:59 14:59 22:59 Intake Total 240 / 240 Balance 240 / 240 Weight last 48 hrs Weight 145 lb Weight 158 lb Physical Exam 2 Narrative: GENERAL: The patient was well-nourished with a healthy appearance and appropriately groomed. MENTAL STATUS: Orientation was full to date, season, situation. Speech was fluent without word hesitation. No difficulty following a complex command. The affect was euthymic. CRANIAL NERVES: Visual acuity was intact to reading small print. Visual jaime were full to confrontation, direct and consensual. She has nonfatiguing nystagmus on right gaze. She has transient horizontal nystagmus on left gaze. PERRLA. Face was symmetric at rest and with grimace. Facial sensation was intact to touch. Hearing was intact to soft spoken voice. Tongue and palate were midline. Shoulders were symmetric. MOTOR: There was no drift of the extended arms. Fine movements in the hands were rapid and symmetric. Toe tapping was rapid and symmetric. Power was 5/5 in all the muscles of all four extremities tested individually. Bulk and tone were normal. SENSATION: Distal numbness in the toes to pin and vibration. COORDINATION: No appendicular ataxia on [id number] or [id number]-[id number] DEEP TENDON REFLEXES: 2/4 throughout. GAIT: She was able to sit up at the edge of the bed without tipping. HEENT: Normocephalic without dysmorphic features. Conjunctivae were not injected and sclerae were nonicteric. NECK: Carotid upstroke was strong bilaterally without bruits. The thyroid was not enlarged and there were no palpable lymph nodes. CHEST: Clear to auscultation. CARDIOVASCULAR: The heart sounds were normal without murmur or gallop. Regular rate and rhythm. EXTREMITIES: No deformities. Data 08/18/25 06:54 08/18/25 06:54 A&P Assessment and plan 1. Vestibular neuronitis of left ear: 74-year-old woman with diabetes and hypertension presented with isolated severe vertigo accompanied by vomiting and with no other focal neurologic symptoms or signs. She has none fatiguing nystagmus on lateral gaze to the right more than the left. She has had previous bouts of this in the past but not as severe. She has no other symptoms to suggest stroke but has risk factors for stroke. Her MRI is negative for ischemia. CT angiogram was negative for basilar artery thrombosis. In fact her CT angiogram is normal. Plan: Vestibular rehab through physical therapy. Consider IV Dramamine 50 mg or lorazepam if her symptoms persist in the morning. PDMP PDMP Reviewed: Not Reviewed Consult Attestations 2 Medical Necessity Statement: Patient was considered at risk for stroke and required further evaluation. Coding Level of Care Code Acute Code for [facility] Diagnoses Vestibular neuronitis of left ear H81.22
[2025-08-19] VITALS (11 sets, daily range): BP systolic 100–114; BP diastolic 58–82; PULSE 66–73; RESP 16–18; TEMP 36.4–36.8; O2SAT 94–99
[2025-08-19 05:18] LABS: Cholesterol 161 mg/dL (0-200); HDL Cholesterol 38 mg/dL (60-100); Triglycerides 100 mg/dL (0-150)
[2025-08-19] MEDS: pantoprazole 40 mg SDV IVP (05:19)
[2025-08-19 05:57] LABS: Estmated Average Glucose 189; Hemoglobin A1C 8.2 % (4.0-6.0)
[2025-08-19] MEDS: insulin glargine 100 units/1 mL 20 UNIT SUBCUT (06:26)
--- NOTE | 2025-08-19 10:03 | PC.CHAP ---
Pastoral Care Encounter/Spiritual Assessment Type of Contact [] Declined electrical engineer mep visit [] Patient/Family/Request visit [] Outpatient visit [] Follow-up visit [] Physician referral [] Code/Alert [x] Routine visit [] Staff referral [] Actively dying [] Patient sleeping [x] Family support [] [] Out of room [] Palliative care [] [] Receiving care in room [] Pre-surgical visit [] Trauma [] Long length of stay [] ICU visit [] Other: Relational/Emotional Strength [x] Patient feels connected with others/family/visitors/staff [] Distress [] Loneliness/isolation [] Abandonment Spirituality of Patient [x] Person of Divine [] Attends Anabaptist of their Divine [x] Believes in Prayer [] Reads Bible or Samaritan materials [] There are Spiritual issues to be addressed Design And Sales Consultant Interventions [x] Prayer [x] Active listening [x] Non-anxious presence [x] Spiritual/emotional support [] Crisis/trauma care [] Spiritual counseling [] Bereavement support [] Provided bereavement packet [] Provided Bible/devotional materials [] Provided toy/stuffed animal, coloring book to patient or family member [] Provided Communion [] Anointing/[place] [] Salvation [x] Completed spiritual assessment [] Other: Impact on Illness or Injury [] Angry [] Fearful [] Anxious [] Often cries [] Exhaustion [] Unable to work [] Unable to attend adventist [] Unable to walk/stand [] Unable to read [] Unable to drive [] Unable to eat/drink [] Unable to sleep [] Unable to be with family [] Patient intubated [] Other: Summary Time spent with patient 5 min
--- NOTE | 2025-08-19 11:27 | PM.PN ---
Vitals/I&O/Wt Last Vital Signs Temp 98.2 F 08/19/25 08:00 Pulse 71 08/19/25 08:00 Resp 16 08/19/25 08:00 BP 100/82 08/19/25 08:00 Pulse Ox 94 08/19/25 07:32 O2 Del Method Room Air 08/19/25 07:40 08/18/25 08/19/25 08/19/25 22:59 06:59 14:59 Intake Total 200 / 440 1035 / 1035 Output Total 500 / 500 Balance 200 / 440 -500 / -60 1035 / 1035 Weight last 48 hrs Weight 65.317 kg Weight 65.771 kg Weight 71.668 kg Physical Exam Narrative: GENERAL: The patient was well-nourished with a healthy appearance and appropriately groomed. MENTAL STATUS: Orientation was full to date, season, situation. Speech was fluent without word hesitation. No difficulty following a complex command. The affect was euthymic. CRANIAL NERVES: Visual acuity was intact to reading small print. Visual jaime were full to confrontation, direct and consensual. She has nonfatiguing nystagmus on right gaze. She has transient horizontal nystagmus on left gaze. PERRLA. Face was symmetric at rest and with grimace. Facial sensation was intact to touch. Hearing was intact to soft spoken voice. Tongue and palate were midline. Shoulders were symmetric. MOTOR: There was no drift of the extended arms. Fine movements in the hands were rapid and symmetric. Toe tapping was rapid and symmetric. Power was 5/5 in all the muscles of all four extremities tested individually. Bulk and tone were normal. SENSATION: Distal numbness in the toes to pin and vibration. COORDINATION: No appendicular ataxia on [id number]-[id number] or [id number]-mwwl DEEP TENDON REFLEXES: 2/4 throughout. GAIT: She was able to sit up at the edge of the bed without tipping. HEENT: Normocephalic without dysmorphic features. Conjunctivae were not injected and sclerae were nonicteric. NECK: Carotid upstroke was strong bilaterally without bruits. The thyroid was not enlarged and there were no palpable lymph nodes. CHEST: Clear to auscultation. CARDIOVASCULAR: The heart sounds were normal without murmur or gallop. Regular rate and rhythm. EXTREMITIES: No deformities. Data 08/18/25 06:54 11/10/25 06:54 A&P Assessment and plan 1. Vestibular neuronitis of left ear: 74-year-old woman with pmhx of respiratory disease, HTN, anxiety, motion sickness, diabetes, sarcoidosis, and fractures presenting with complaints of dizziness. Patient had awoken from sleep with dizziness and nystagmus with associated nausea and vomiting. EMS was called and she was transported to [facility] ED via ambulance. Her MRI is negative for ischemia. CT angiogram was negative for basilar artery thrombosis. In fact her CT angiogram is normal. Hospitalist service signing off with condition of neurology assessment and sign off today (08/19/2025). Stroke workup completed, neurology on board, patient is to follow-up with PT outpatient with focus on vestibular specialty. Plan: Vestibular Neuronitis of Left Ear Vestibular rehab through physical therapy. Per Neurology, consider IV Dramamine 50 mg or lorazepam if her symptoms persist in the morning. PT/OT Vertigo Patient has known history of motion sickness Fall risk precautions History of Respiratory Disease Including PNA, Sarcoidosis, and Right Lung Mass Pulse ox Supplemental o2 Telemetry Nausea and Vomiting Antiemetics Last episode 08/18/2025 Anxiety Continue home regimen PDMP PDMP Reviewed: Not Reviewed Attestations Medical Necessity Statement*: Continued observation necessity until Neurology sign off. Diagnoses Vestibular neuronitis of left ear H81.22
--- NOTE | 2025-08-19 11:42 | PM.DCS ---
Discharge Providers Date of Admission: 08/18/25 08:19 Date of Discharge: August 19, 2025 Attending Provider at Admission: Markus Herring Attending Provider at Discharge: Lorri Sams LOCOMOTIVE CRANE OPERATOR, SUBSTANCE ABUSE RN Consults: Neurology, Dr. Yancey Primary Care Provider: Keanu Frey MD Diagnoses at Discharge Discharge Diagnosis 1. Vestibular neuronitis of left ear: Details from hospital stay: Vestibular rehab through physical therapy. Per Neurology, consider IV Dramamine 50 mg or lorazepam if symptoms persist. PT/OT Fall risk precautions Reason for Visit Reason for Visit: n/v/d Brief History: Last episode 08/18/2025 Antiemetics Hospital Course Hospital Course 74-year-old woman with pmhx of respiratory disease, HTN, anxiety, motion sickness, diabetes, sarcoidosis, and fractures presenting with complaints of dizziness. Patient had awoken from sleep with dizziness and nystagmus with associated nausea and vomiting. EMS was called and she was transported to [facility] ED via ambulance. Her MRI is negative for ischemia. CT angiogram was negative for basilar artery thrombosis. CT angiogram is normal. Planning for outpatient vestibular rehab through physical therapy. Physical Exam Narrative: GENERAL: The patient was well-nourished with a healthy appearance and appropriately groomed. MENTAL STATUS: Orientation was full to date, season, situation. Speech was fluent without word hesitation. No difficulty following a complex command. The affect was euthymic. CRANIAL NERVES: Visual acuity was intact to reading small print. Visual jaime were full to confrontation, direct and consensual. She has nonfatiguing nystagmus on right gaze. She has transient horizontal nystagmus on left gaze. PERRLA. Face was symmetric at rest and with grimace. Facial sensation was intact to touch. Hearing was intact to soft spoken voice. Tongue and palate were midline. Shoulders were symmetric. MOTOR: There was no drift of the extended arms. Fine movements in the hands were rapid and symmetric. Toe tapping was rapid and symmetric. Power was 5/5 in all the muscles of all four extremities tested individually. Bulk and tone were normal. SENSATION: Distal numbness in the toes to pin and vibration. COORDINATION: No appendicular ataxia on nmxzbn-abmb-mjncqg or opuj-wuop-iqaj DEEP TENDON REFLEXES: 2/4 throughout. GAIT: She was able to sit up at the edge of the bed without tipping. HEENT: Normocephalic without dysmorphic features. Conjunctivae were not injected and sclerae were nonicteric. NECK: Carotid upstroke was strong bilaterally without bruits. The thyroid was not enlarged and there were no palpable lymph nodes. CHEST: Clear to auscultation. CARDIOVASCULAR: The heart sounds were normal without murmur or gallop. Regular rate and rhythm. EXTREMITIES: No deformities. Discharge Data Studies Completed and Pending Completed Studies During Hospitalization Category Date Time Status CT head thrombolytic [id number] Stat Cat Scan 08/18/25 06:20 Completed CTA head neck [CT angio headneck* [id number]] Stat Cat Scan 08/18/25 06:25 Completed MR head wo/w con [id number] Routine MRI 08/18/25 09:02 Completed Pending at discharge Category Date Time Status CV. echo w/w bubble cont [id number] Routine Ultrasound 08/18/25 10:28 Taken Radiology Impressions Head CT 08/18/25 06:20 IMPRESSION: Negative for acute intracranial pathology. ASSESSMENT: ASPECTS ([place] Stroke Program Early CT Score) is 10. ADDENDUM: 08/18/2546 Findings were discussed with DENZEL JALLOH at 08/18/2025 6:44 AM OWNER/OPERATOR. Head/Neck CTA 08/18/25 06:25 IMPRESSION: Bilateral internal carotid artery stenosis. Otherwise patent [id number]-Vrrldy. IMPRESSION: No stenosis or occlusion. REFERENCES: NASCET CRITERIA. The degree of stenosis in the cervical segment of the internal carotid artery is based on NASCET criteria. Normal is no stenosis. Mild is less than 50% stenosis. Moderate is 50-69% stenosis. Severe is 70% to 99% stenosis. Total occlusion is no detectable patent lumen. ADDENDUM: 08/18/25 0715 THIS REPORT CONTAINS FINDINGS THAT MAY BE CRITICAL TO PATIENT CARE. The findings were verbally communicated via telephone conference with DENZEL JALLOH at 7:13 AM OWNER/OPERATOR on 08/18/2025. The findings were acknowledged and understood. Head MRI 08/18/25 09:02 IMPRESSION: 1. No evidence of restricted diffusion to suggest acute ischemia. 2. Mild small vessel changes with moderate parenchymal volume loss. 3. No hemosiderin on the susceptibly weighted images. 4. No other acute findings. Laboratory Results WBC 6.38 10^3/uL (3.29-11.43) 08/18/25 06:54 RBC 4.36 10^6/uL (3.85-5.65) 08/18/25 06:54 Hgb 13.10 g/dL (11.27-16.99) 08/18/25 06:54 Hct 38.6 % (36-47) 08/18/25 06:54 MCV 88.5 fl (85-98) 08/18/25 06:54 MCH 30.0 pg (27-33) 08/18/25 06:54 MCHC 33.9 g/dL (30-55) 08/18/25 06:54 RDW 13.5 % (12.1-15.1) 08/18/25 06:54 Plt Count 141 10^3/cmm (157-399) L 08/18/25 06:54 MPV 11.4 fL (7.4-10.4) H 08/18/25 06:54 Neut % (Auto) 88.0 % 08/18/25 06:54 Lymph % (Auto) 6.3 % 08/18/25 06:54 [place] % (Auto) 4.4 % 08/18/25 06:54 Eos % (Auto) 0.3 % 08/18/25 06:54 Baso % (Auto) 0.5 % 08/18/25 06:54 Neut # (Auto) 5.62 10^3/uL (1.8-7.7) 08/18/25 06:54 Lymph # (Auto) 0.4 10^3/uL (0.8-4.8) L 08/18/25 06:54 [place] # (Auto) 0.3 10^3/uL (0.2-0.9) 08/18/25 06:54 Eos # (Auto) 0.0 10^3/uL (0.0-0.8) 08/18/25 06:54 Baso # (Auto) 0.0 10^3/uL (0.0-0.1) 08/18/25 06:54 Nucleated RBC % (auto) 0 % 08/18/25 06:54 Nucleated RBCs # 0.0 /100WBC 08/18/25 06:54 PT 13.00 SECONDS (12.1-14.9) 08/18/25 06:54 INR 0.92 (0.8-1.2) 08/18/25 06:54 APTT 26.2 SECONDS (23.9-36.7) 08/18/25 06:54 Sodium 135 mmol/L (136-145) L 08/18/25 06:54 Potassium 4.2 mmol/L (3.5-5.1) 08/18/25 06:54 Chloride 100 mmol/L (98-107) 08/18/25 06:54 Carbon Dioxide 24 mmol/L (22-29) 08/18/25 06:54 Anion Gap 15.2 (5-19) 08/18/25 06:54 BUN 8 mg/dL (8-23) 08/18/25 06:54 Creatinine 0.5 mg/dL (0.5-0.9) 08/18/25 06:54 GFR Calculation Not Reportable 08/18/25 06:54 Glucose 300 mg/dL (65-115) H 08/18/25 06:54 POC Glucose 156 mg/dL (70-110) H 08/19/25 06:25 Estimat Average Glucose 189 08/19/25 04:28 Hemoglobin A1c 8.2 % (4.0-6.0) H 08/19/25 04:28 Calculated Osmolality 290 mOsm/kg (285-295) 08/18/25 06:54 Calcium 8.5 mg/dL (8.5-10.5) 08/18/25 06:54 Magnesium 1.8 mg/dL (1.7-2.3) 08/18/25 06:54 Total Bilirubin 0.5 mg/dL (0.15-1.2) 08/18/25 06:54 AST 12 U/L (0-32) 08/18/25 06:54 ALT 7 U/L (0-33) 08/18/25 06:54 Alkaline Phosphatase 82 U/L (35-105) 08/18/25 06:54 Total Protein 5.9 g/dL (6.6-8.7) L 08/18/25 06:54 Albumin 3.6 g/dL (3.5-5.2) 08/18/25 06:54 Globulin 2.3 g/dL (1.3-4.6) 08/18/25 06:54 Triglycerides 100 mg/dL (0-150) 08/19/25 04:28 Cholesterol 161 mg/dL (0-200) 08/19/25 04:28 LDL Cholesterol, Calc 103 mg/dL (50-129) 08/19/25 04:28 HDL Cholesterol 38 mg/dL (60-100) L 08/19/25 04:28 LDL/HDL Ratio 2.71 RATIO (0.00-3.22) 08/19/25 04:28 Cholesterol/HDL Ratio 4.24 mg/dL (0.0-4.40) 08/19/25 04:28 Vitamin B12 314 pg/mL (232-1245) 08/18/25 06:54 Folate 8.4 ng/mL (4.8-37.3) 08/18/25 06:54 TSH 1.89 uIU/mL (0.27-4.20) 08/18/25 06:54 Urine Color Yellow (Yellow) 08/18/25 13:30 Urine Appearance Clear (CLEAR) 08/18/25 13:30 Urine pH 5.5 (5-7) 08/18/25 13:30 Ur Specific [place] 1.065 (1.005-1.030) H 08/18/25 13:30 Urine Protein Negative (Negative) 08/18/25 13:30 Urine Glucose (UA) 1+ (Normal) H 08/18/25 13:30 Urine Ketones Negative (Negative) 08/18/25 13:30 Urine Blood Negative (Negative) 08/18/25 13:30 Urine Nitrate Negative (Negative) 08/18/25 13:30 Urine Bilirubin Negative (Negative) 08/18/25 13:30 Urine Urobilinogen 1.0 mg/dL (Negative) 08/18/25 13:30 Ur Leukocyte Esterase Negative (Negative) 08/18/25 13:30 Urine RBC 0-2 /hpf (0-2) 08/18/25 13:30 Urine WBC 0-5 /hpf (0-5) 08/18/25 13:30 Ur Squamous Epith Cells 0-5 /hpf (0-5) 08/18/25 13:30 Amorphous Sediment Not Reportable 08/18/25 13:30 Urine Bacteria None seen /hpf (NONE) 08/18/25 13:30 Hyaline Casts 0-4 /lpf H 08/18/25 13:30 Urine Opiates Screen Negative ng/mL (Negative) 08/18/25 13:30 Ur Barbiturates Screen Negative ng/mL (Negative) 08/18/25 13:30 Ur Phencyclidine Scrn Negative ng/mL (Negative) 08/18/25 13:30 Ur Amphetamines Screen Negative ng/mL (Negative) 08/18/25 13:30 U Benzodiazepines Scrn Positive ng/mL (Negative) H 08/18/25 13:30 Urine Cocaine Screen Negative ng/mL (Negative) 08/18/25 13:30 U Marijuana (THC) Screen Negative ng/mL (Negative) 08/18/25 13:30 Vitals Last Vital Signs Temp 98.2 F 08/19/25 08:00 Pulse 71 08/19/25 08:00 Resp 16 08/19/25 08:00 BP 100/82 08/19/25 08:00 Pulse Ox 94 08/19/25 07:32 O2 Del Method Room Air 08/19/25 07:40 Discharge Plan Discharge Patient Disposition: Home Condition: Stable Prescriptions: Continued acetaminophen [Tylenol] 325 mg tablet 500 mg PO QID PRN (Reason: Pain) (DME) pen needle, diabetic [TRUEplus Pen Needle] 31 gauge x 3/16 needle See Rx Instructions .ROUTE .MEDSUPPLY Qty: 1200 Rx Instructions: As directed insulin degludec [Tresiba FlexTouch U-200] 200 unit/mL (3 mL) insulin pen 24 unit SUBCUT DAILY (DME) ulnar gutter fast form See Rx Instructions .ROUTE .MEDSUPPLY Qty: 1 0RF Rx Instructions: As directed pregabalin 100 mg capsule 100 mg PO BID Die Cast Technician OK for DC: Hospitalist Other Ambulatory Orders: Physical Therapy Eval and Treat Outpatient (Order) Timeframe: 3 Days Facility: [facility] - Location: Physical Therapy Ordered By: Lorri Sams Referrals: [facility] Outpatient Therapy [Outside] Keanu Frey MD [Primary Care Provider, Internal Medicine] - 4-7 days Discharge Diet: Advance as tolerated Discharge Activity: Increase activity as tolerated Patient Instructions: Opioid Safety, Patient Portal & Kyle Instructions Discharge Attestations Time Spent in Discharge Care*: greater than 30 min Specific Discharge Activities: educating patient and educating and/or supporting family/caregiver Status at Discharge: Cognitive status at discharge: cognitively intact, Behavioral status at discharge: cooperative, Quality Metrics Clinical Quality Measures [ No reported AMI, CVA or VTE this stay] Coding Level of Care Code 73705 Total time (in minutes) for Discharge: 30 Diagnoses Vestibular neuronitis of left ear H81.22 Time Spent (min) 70
--- NOTE | 2025-08-19 12:26 | PC.NURSE ---
Pt is being discharged home. Pt will have outpt PT. IV removed. PT had no issues upon leaving. Pt will be wheelchair to private facility.
--- NOTE | 2025-08-19 12:27 | PC.OT ---
OT TREATMENT ATTEMPTED; PATIENT CURRENTLY IN SHOWER. PATIENT IS ALSO SCHEDULED FOR D/C TODAY
== END 2025-08-19 13:27 | disposition home or self-care (01) ==
LOC: ER 06:23 → MEDSURG 08:19
PROVIDERS: Admitting Provider Internal Medicine; Emergency Provider Family Medicine; PCP Internal Medicine; Visit Provider Clinical Nurse Specialist Acute Care
DX: H81.22 Vestibular neuronitis, left ear (principal); Z79.4 Long term (current) use of insulin; E11.9 Type 2 diabetes mellitus without complications; I10 Essential (primary) hypertension; Z87.891 Personal history of nicotine dependence; D86.9 Sarcoidosis, unspecified; I63.50 Cerebral infarction due to unspecified occlusion or stenosis of unspecified cerebral artery; R29.702 NIHSS score 2; J98.4 Other disorders of lung
CPT/HCPCS: 36415; 36416; 70450; 70496; 70498; 70553; 80053; 80061; 80306; 81001; 82607; 82746; 82962; 83036; 83735; 84443; 85025; 85610; 85730; 92610; 93005; 96372; 96374; 96375; 97112; 97161; 97167; 97530; 99285; A9577; C8929; G0378; J1815; J2060; J2405; J2470; J7030; J9999

== ENCOUNTER 2025-08-25 08:51 | Outpatient (RCR) | payer MEDICARE, BC, SELFPAY | END 2025-09-07 23:59 | disposition home or self-care (01) | LOC: SPT 08:51 | PROVIDERS: PCP Internal Medicine; Visit Provider Clinical Nurse Specialist Acute Care | DX: H81.10 Benign paroxysmal vertigo, unspecified ear (principal) | CPT/HCPCS: 95992; 97161 ==